=== PATIENT | male | born 1945 | race Caucasian/White ===

== ENCOUNTER 2018-02-18 17:46 | Inpatient (IN) | payer MEDICARE ==
[~2018-02-18] VITALS: Ht 180.3 cm; Wt 104.5 kg
[2018-02-18 17:47] VITALS: BP 119/55; PULSE 67; RESP 20; TEMP 97.4; O2SAT 97
[2018-02-18] MEDS ORDERED: DENO120P SQ (18:09)
[2018-02-18] MEDS ORDERED: TAMS0.4C4 PO (18:09)
[2018-02-18] MEDS ORDERED: ENZA40CA PO (18:09)
[2018-02-18] MEDS ORDERED: LEUP1INJ8 SQ (18:09)
[2018-02-18] MEDS ORDERED: MELA5 PO (18:09)
[2018-02-18] MEDS ORDERED: CALC1TAB87 PO (18:09)
[2018-02-18] MEDS ORDERED: METO1TAB42 PO (18:09)
[2018-02-18] MEDS ORDERED: WARF-18 PO (18:09)
[2018-02-18] MEDS ORDERED: ATOR80TA45 PO (18:09)
[2018-02-18] MEDS ORDERED: METF1000 PO (18:09)
[2018-02-18] MEDS ORDERED: [UNRECOGNIZED DRUG - CODE] (18:09)
[2018-02-18] MEDS ORDERED: OMEGCAP29 PO (18:09)
[2018-02-18] MEDS ORDERED: PARO40TA2 PO (18:09)
[2018-02-18] MEDS ORDERED: LISI-515 PO (18:09)
[2018-02-18 18:16] VITALS: BP 153/71; PULSE 61; RESP 18; O2SAT 97
--- NOTE | 2018-02-18 18:21 | PD ---
HPI Chief Complaint: Abdominal Pain Time Seen by Provider: 17:52 Travel History International Travel<30 days: No Contact w/Intl Traveler<30days: No Traveled to known affect area: No History of Present Illness HPI 72-year-old male presents for evaluation of abdominal pain. Symptoms started this morning. He describes it as a sharp pain in his epigastric and right upper quadrant which is constant, worse with movement. He reports associated nausea and "dry heaves." He reports chronic diarrhea. He denies chest pain, shortness of breath, fevers or chills, flank pain, dysuria. He reports that he has had pancreatitis twice in the past but this did not feel quite similar. He reports a history of appendectomy in the past. He has no other complaints at this time. PFS Past Medical History Atrial Fibrillation: Yes Anxiety: Yes Cancer: Yes (PROSTATE) Cardiac Catheterization: Yes (3 STENTS) Coronary Artery Disease: Yes Diabetes: Yes Patient Takes Glucophage: Yes Genitourinary: Yes (RENAL CYST) Hypertension: Yes Kidney Stones: Yes Past Surgical History Neurologic Surgery: Yes (BACK, NECK) Social History Alcohol Use: No Tobacco Use: No Substance Use: Yes (THC) Allergies-Medications (Allergen,Severity, Reaction): Coded Allergies: No Known Allergies (Unverified , 02/18/18) Reported Meds & Prescriptions Reported Meds & Active Scripts Active Reported Xofigo ([place]-223 Dichloride) 1,100 Kbq/Ml (30 Microcurie/Ml) Vial Xtandi (Enzalutamide) 40 Mg Cap 160 Mg PO DAILY Eligard Inj Kit (Leuprolide Acetate) 7.5 Mg Kit Unknown Dose SQ Q30D Xgeva Inj (Denosumab) 120 Mg/1.7 Ml (70 Mg/Ml) Inj 120 Mg SQ Q28D Melatonin 5 Mg Tab 5 Mg PO HS Warfarin 2.5 Mg Tab 2.5 Mg PO DAILY Calcium 600 with Vitamin D (Calcium Carbonate-Cholecalciferol) 600-400 mg-Unit Tab 1 Tab PO DAILY [facility] ([place] 3 Fatty Azorv-Nbrpaz-Frwtootzic) 250-2.5-0.5 Mg Cap 1 Cap PO DAILY Tamsulosin (Tamsulosin HCl) 0.4 Mg Cap 0.4 Mg PO HS Paroxetine (Paroxetine HCl) 40 Mg Tab 40 Mg PO DAILY Metoprolol Succinate ER 24 HR (Metoprolol Succinate) 25 Mg Tab 75 Mg PO DAILY Atorvastatin (Atorvastatin Calcium) 80 Mg Tab 80 Mg PO HS Metformin (Metformin HCl) 1,000 Mg Tab 1,000 Mg PO BIDPC Lisinopril 20 Mg Tab 20 Mg PO DAILY Review of Systems Except as stated in HPI: all other systems reviewed are Neg Physical Exam Narrative GENERAL: Well-developed well-nourished male in no acute distress SKIN: Warm and dry. HEAD: Atraumatic. Normocephalic. EYES: Pupils equal and round. No scleral icterus. No injection or drainage. ENT: No nasal bleeding or discharge. Mucous membranes pink and moist. NECK: Trachea midline. No JVD. CARDIOVASCULAR: Regular rate and rhythm. No murmur appreciated. RESPIRATORY: No accessory muscle use. Clear to auscultation. Breath sounds equal bilaterally. GASTROINTESTINAL: Abdomen soft, tender to palpation in the epigastrium and right upper quadrant without guarding MUSCULOSKELETAL: No obvious deformities. No clubbing. No cyanosis. No edema. NEUROLOGICAL: Awake and alert. No obvious cranial nerve deficits. Motor grossly within normal limits. Normal speech. PSYCHIATRIC: Appropriate mood and affect; insight and judgment normal. Data Data Last Documented VS Vital Signs Date Time Temp Pulse Resp B/P (MAP) Pulse Ox O2 Delivery O2 Flow Rate FiO2 02/18/18 18:16 61 18 153/71 (98) 97 Room Air 02/18/18 17:47 97.4 Orders Orders Complete Blood Count With Diff (02/18/18 18:17) Comprehensive Metabolic Panel (02/18/18 18:17) Lipase (02/18/18 18:17) Prothrombin Time / Inr (Pt) (02/18/18 18:17) Act Partial Throm Time (Ptt) (02/18/18 18:17) Urinalysis - C+S If Indicated (02/18/18 18:17) Ct Abd/Pel W Iv Contrast(Rout) (02/18/18 18:17) Us Abdomen Gallbladder (02/18/18 ) Iv Access Insert/Monitor (02/18/18 18:17) Ecg Monitoring (02/18/18 18:17) Oximetry (02/18/18 18:17) Morphine Inj (Morphine Inj) (02/18/18 18:30) Ondansetron Inj (Zofran Inj) (02/18/18 18:30) Sodium Chloride 0.9% Flush (Ns Flush) (02/18/18 18:30) Electrocardiogram (02/18/18 18:17) Ckmb (Isoenzyme) Profile (02/18/18 18:17) Troponin I (02/18/18 18:17) Chest, Single Ap (02/18/18 18:17) CKMB (02/18/18 18:20) CKMB% (02/18/18 18:20) Iohexol 350 Inj (Omnipaque 350 Inj) (02/18/18 19:45) Sodium Chlor 0.9% 1000 Ml Inj (Ns 1000 M (02/18/18 20:14) Hydromorphone Pf Inj (Dilaudid Pf Inj) (02/18/18 21:45) Admit Order (Ed Use Only) (02/18/18 21:44) Labs Laboratory Tests Test 02/18/18 18:20 White Blood Count 9.7 TH/MM3 Red Blood Count 3.60 MIL/MM3 Hemoglobin 11.9 GM/DL Hematocrit 34.1 % Mean Corpuscular Volume 94.8 FL Mean Corpuscular Hemoglobin 33.0 PG Mean Corpuscular Hemoglobin Concent 34.8 % Red Cell Distribution Width 14.2 % Platelet Count 242 TH/MM3 Mean Platelet Volume 7.8 FL Neutrophils (%) (Auto) 83.8 % Lymphocytes (%) (Auto) 8.6 % Monocytes (%) (Auto) 5.7 % Eosinophils (%) (Auto) 1.7 % Basophils (%) (Auto) 0.2 % Neutrophils # (Auto) 8.2 TH/MM3 Lymphocytes # (Auto) 0.8 TH/MM3 Monocytes # (Auto) 0.6 TH/MM3 Eosinophils # (Auto) 0.2 TH/MM3 Basophils # (Auto) 0.0 TH/MM3 CBC Comment DIFF FINAL Differential Comment Prothrombin Time 53.4 SEC Prothromb Time International Ratio 5.3 RATIO Activated Partial Thromboplast Time 51.4 SEC Blood Urea Nitrogen 34 MG/DL Creatinine 1.41 MG/DL Random Glucose 99 MG/DL Total Protein 7.3 GM/DL Albumin 3.6 GM/DL Calcium Level 9.1 MG/DL Alkaline Phosphatase 45 U/L Aspartate Amino Transf (AST/SGOT) 23 U/L Alanine Aminotransferase (ALT/SGPT) 26 U/L Total Bilirubin 0.3 MG/DL Sodium Level 138 MEQ/L Potassium Level 4.7 MEQ/L Chloride Level 107 MEQ/L Carbon Dioxide Level 18.9 MEQ/L Anion Gap 12 MEQ/L Estimat Glomerular Filtration Rate 50 ML/MIN Total Creatine Kinase 144 U/L Creatine Kinase MB 3.4 NG/ML Troponin I LESS THAN 0.02 NG/ML Lipase 40399 U/L MDM Medical Decision Making Medical Screen Exam Complete: Yes Emergency Medical Condition: Yes Medical Record Reviewed: Yes Differential Diagnosis Pancreatitis, colitis, bowel obstruction, aortic dissection, cholecystitis, biliary colic, acute coronary syndrome, peptic ulcer disease Narrative Course The patient was placed on ECG monitoring pulse oximetry. A 12-lead EKG was obtained revealing sinus rhythm with left atrial enlargement. Lab work, chest x -ray, right upper quadrant ultrasound, CT abdomen and pelvis have been ordered. CT abdomen and pelvis CONCLUSION: 1. Acute pancreatitis with fluid extending into the anterior pararenal space. Probable 1.9 cm pseudocyst in the body of the pancreas. 2. Widely metastatic prostatic bony disease. 3. Bilateral renal cysts and nonobstructing 3 mm calculus lower pole left kidney. The patient reports that he is aware of the metastatic nature of his prostate disease. He follows with a urologist in [place]. His lipase today is 35,213. At this point in time the plan is to admit the patient for pancreatitis. Diagnosis Primary Impression: Acute pancreatitis Additional Impression: Pseudocyst of pancreas Admitting Information Admitting Physician Requests: Admit Kishore Samayoa Feb 18, 2018 18:21
[2018-02-18] MEDS ORDERED: SODIUM CHLORIDE 0.9% FLUSH 10 ML FLUSH IV FLUSH PRN ×2 (18:30→22:00)
[2018-02-18] MEDS ORDERED: MORPHINE SULFATE 4 MG/ML INJ IV PUSH ONE (18:30)
[2018-02-18] MEDS ORDERED: ONDANSETRON HCL 4 MG/2 ML VIAL IVP ONE (18:30)
[2018-02-18 18:33] LABS: AUTOMATED NEUTROPHIL # 8.2 TH/MM3 (1.8-7.7); BASOPHIL % 0.2 % (0.0-2.0); EOSINOPHIL # 0.2 TH/MM3 (0-0.4); EOSINOPHIL % 1.7 % (0.0-4.0); HEMATOCRIT 34.1 % (39.0-51.0); HEMOGLOBIN 11.9 GM/DL (13.0-17.0); LYMPH % 8.6 % (9.0-44.0); LYMPHOCYTE # 0.8 TH/MM3 (1.0-4.8); MEAN CELL VOLUME 94.8 FL (80.0-100.0); MEAN CORPUSCULAR HGB CONC 34.8 % (32.0-36.0); MEAN PLATELET VOLUME 7.8 FL (7.0-11.0); MONO % 5.7 % (0.0-8.0); MONOCYTE # 0.6 TH/MM3 (0-0.9); NEUT % 83.8 % (16.0-70.0); PLATELET COUNT 242 TH/MM3 (150-450); RED CELL DISTRIBUTION WIDTH 14.2 % (11.6-17.2); WHITE BLOOD COUNT 9.7 TH/MM3 (4.0-11.0)
[2018-02-18 18:48] LABS: INTERNATIONAL NORMALIZED RATIO 5.3 RATIO; PROTHROMBIN TIME - PATIENT 53.4 SEC (9.8-11.6)
[2018-02-18 19:00] LABS: ALBUMIN 3.6 GM/DL (3.4-5.0); AST (GOT) 23 U/L (15-37); BICARBONATE 18.9 MEQ/L (21.0-32.0); BLOOD UREA NITROGEN 34 MG/DL (7-18); CALCIUM 9.1 MG/DL (8.5-10.1); CHLORIDE 107 MEQ/L (98-107); CREATININE 1.41 MG/DL (0.60-1.30); GLOMERULAR FILTRATION RATE 50 ML/MIN (>89); GLUCOSE,RANDOM 99 MG/DL (74-106); SODIUM (NA) 138 MEQ/L (136-145)
[2018-02-18 19:01] LABS: ALT (GPT) 26 U/L (12-78)
--- NOTE | 2018-02-18 19:04 | RADRPT ---
EXAM DATE/TIME: 02/18/2018 18:35 [facility] COMPARISON: No previous studies available for comparison. INDICATIONS : Lower chest pain and shortness of breath. MEDICAL HISTORY : Chronic obstructive pulmonary disease. Hypertension Diabetes mellitus type II. SURGICAL HISTORY : Two cardiac stents. ENCOUNTER: Initial ACUITY: 4 - 6 days PAIN SCORE: 6/10 LOCATION: Bilateral chest FINDINGS: A single view of the chest demonstrates the lungs to be symmetrically aerated without evidence of mas s, infiltrate or effusion. Focal eventration of the medial aspect of the right hemidiaphragm. The ca rdiomediastinal contours are unremarkable. Osseous structures are intact with some degenerative spur ring of the dorsal spine. CONCLUSION: No acute cardiopulmonary process. Chemo Burris MD on February 18, 2018 at 18:58 Board Certified Radiologist. This report was verified electronically.
[2018-02-18 19:06] LABS: ALKALINE PHOSPHATASE 45 U/L (45-117); TOTAL BILIRUBIN ADULT 0.3 MG/DL (0.2-1.0); TOTAL PROTEIN 7.3 GM/DL (6.4-8.2); TROPONIN I LESS THAN 0.02 NG/ML (0.02-0.05)
--- NOTE | 2018-02-18 19:15 | RADRPT ---
EXAM DATE/TIME: 02/18/2018 18:39 [facility] COMPARISON: No previous studies available for comparison. INDICATIONS : Abdominal pain with nausea. MEDICAL HISTORY : Pancreatitis. Carcinoma, prostate. Hypertension. Diabetes. CAD. Renal Cyst. Kidney Stones. SURGICAL HISTORY : Appendectomy. ENCOUNTER: Initial ACUITY: 1 day PAIN SCORE: 5/10 LOCATION: Right upper quadrant MEASUREMENTS: LIVER: 15.2 cm length COMMON DUCT: 6 mm RIGHT KIDNEY: 9.7 x 5.0 x 5.4 cm FINDINGS: LIVER: Slightly increased echotexture without focal lesion or ductal dilatation. COMMON DUCT: No intraluminal mass or stone visualized. GALLBLADDER: Contains no stones, demonstrates no wall thickening or pericholecystic fluid. PANCREAS: The visualized portions are within normal limits. RIGHT KIDNEY: No evidence of hydronephrosis, stone, or mass. 1.8 cm cyst upper pole CONCLUSION: 1. No acute findings. Mild fatty liver. Small right renal cyst. No gallstones or biliary ductal dilat ation. Mo Romero MD on February 18, 2018 at 19:12 Board Certified Radiologist. This report was verified electronically.
[2018-02-18] MEDS ORDERED: IOHEXOL 350 MG/ML 10 ML VIAL (for RAD DIAG) IVCONTRAST ONE (19:45)
--- NOTE | 2018-02-18 20:11 | RADRPT ---
EXAM DATE/TIME: 02/18/2018 19:38 [facility] COMPARISON: No previous studies available for comparison. INDICATIONS : Diffuse abdomen pain and nausea today. IV CONTRAST: 97 cc Omnipaque 350 (iohexol) IV ORAL CONTRAST: No oral contrast ingested. RADIATION DOSE: 14.48 CTDIvol (mGy) MEDICAL HISTORY : Renal calculi. Carcinoma, prostate. diabetes SURGICAL HISTORY : None. ENCOUNTER: Initial ACUITY: 1 day PAIN SCALE: 7/10 LOCATION: Bilateral abdomen TECHNIQUE: Volumetric scanning of the abdomen and pelvis was performed. Using automated exposure control and ad justment of the mA and/or kV according to patient size, radiation dose was kept as low as reasonably achievable to obtain optimal diagnostic quality images. DICOM format image data is available electro nically for review and comparison. FINDINGS: There are diffuse osteoblastic metastases involving the axial axial skeleton and ribs most characteri stic of prostate metastatic disease. Lung bases are clear. No pleural or pericardial effusion. Moderate coronary calcifications. Findings the liver, spleen, adrenals. Bilateral renal cysts with nonobstructing 3 mm calculus lower p ole left kidney. There are extensive inflammatory and edematous changes around the pancreas most characteristic of acu te pancreatitis. 1.9 cm cyst in the body of the pancreas most characteristic of a pseudocyst. There is no free fluid. No bowel obstruction. No adenopathy. Radiation seed implants in the prostatic bed. CONCLUSION: 1. Acute pancreatitis with fluid extending into the anterior pararenal space. Probable 1.9 cm pseudoc yst in the body of the pancreas. 2. Widely metastatic prostatic bony disease. 3. Bilateral renal cysts and nonobstructing 3 mm calculus lower pole left kidney. Mo Romero MD on February 18, 2018 at 20:03 Board Certified Radiologist. This report was verified electronically.
[2018-02-18] MEDS ORDERED: SODIUM CHLOR 0.9% 1000 ML INJ 1,000 ML IV SCH (20:14)
[2018-02-18] MEDS ORDERED: HYDROmorphone HCL PF 1 MG/ML VIAL IV PUSH ONE (21:45)
--- NOTE | 2018-02-18 21:57 | HHI.HP ---
HPI Service [facility] Primary Care Physician No Primary Care Physician Admission Diagnosis Acute pancreatitis, pseudocyst Diagnoses: (1) Acute pancreatitis Diagnosis: Principal (2) Supratherapeutic INR Diagnosis: Principal (3) Prostate CA Diagnosis: Principal (4) Renal insufficiency Diagnosis: Principal Travel History International Travel<30 Days: No Contact w/Intl Traveler <30 Da: No Traveled to Known Affected Are: No History of Present Illness This is a 72-year-old male with a PMH of Metastatic Prostate CA, A-fib on Coumadin, HTN, CAD and DM who presented to ER with complaints of abdominal pain starting earlier today. States he's had ongoing diarrhea for approx 2mo, follows w/ GI doc in [place], however has not seen him since symptoms started. Today, had episode of severe RUQ/epigastric pain, sharp, 10/10, radiation to back, worse w/ movement. Symptoms persisted after several hours at which time he decided to come to the ER. No fever, chills, nausea or vomiting. On arrival , BP 119/55, HR 67, O2 sat 97% on RA, Afebrile. CBC essentially unremarkable. Creatinine 1.41, no previous labs for comparison. Troponin negative. Lipase 35 ,213. INR 5.3. CT Abdomen/Pelvis with acute pancreatitis with fluid extending to anterior pararenal space, probable 1.9 cm pseudocyst in body of the pancreas , widely metastatic prostatic bony disease. CXR with no acute findings. Gallbladder US no acute findings, mild fatty liver, no gallstones or biliary ductal dilatation. Pt reports h/o Pancreatitis approx 5-6 yrs ago, states Lipase was around 2000 at that time, no recurrence since then. Review of Systems Except as stated in HPI: all other systems reviewed are Neg ROS: 14 point review of systems otherwise negative. Past Family Social History Past Medical History PMH: Metastatic Prostate CA, A-fib on Coumadin, HTN, CAD and DM Past Surgical History PAST SURGICAL HISTORY: Neck/Back Surgery Allergies: Coded Allergies: No Known Allergies (Unverified , 02/18/18) Family History PAST FAMILY HISTORY: Reviewed., Positive for DM Social History PAST SOCIAL HISTORY: Negative for alcohol or tobacco. +THC Physical Exam Vital Signs Vital Signs Date Time Temp Pulse Resp B/P (MAP) Pulse Ox O2 Delivery O2 Flow Rate FiO2 02/18/18 18:16 61 18 153/71 (98) 97 Room Air 02/18/18 17:47 97.4 67 20 119/55 (76) 97 Physical Exam PE: GENERAL: Pleasant middle aged white male in no acute distress. HEENT: PERRLA, EOMI. No scleral icterus or conjunctival pallor. No lid lag or facial droop. CARDIOVASCULAR: Regular rate and rhythm. No obvious murmurs to auscultation. No chest tenderness to palpation. RESPIRATORY: No obvious rhonchi or wheezing. Clear to auscultation. Breath sounds equal bilaterally. GASTROINTESTINAL: Abdomen soft, epigastric tenderness to palpation, nondistended. BS normal. MUSCULOSKELETAL: Extremities without clubbing, cyanosis, or edema. No obvious deformities. NEUROLOGICAL: Awake, alert and oriented x4. No focal neurologic deficits. Moving both upper and lower extremities spontaneously. Laboratory Laboratory Tests Test 02/18/18 18:20 White Blood Count 9.7 Red Blood Count 3.60 Hemoglobin 11.9 Hematocrit 34.1 Mean Corpuscular Volume 94.8 Mean Corpuscular Hemoglobin 33.0 Mean Corpuscular Hemoglobin Concent 34.8 Red Cell Distribution Width 14.2 Platelet Count 242 Mean Platelet Volume 7.8 Neutrophils (%) (Auto) 83.8 Lymphocytes (%) (Auto) 8.6 Monocytes (%) (Auto) 5.7 Eosinophils (%) (Auto) 1.7 Basophils (%) (Auto) 0.2 Neutrophils # (Auto) 8.2 Lymphocytes # (Auto) 0.8 Monocytes # (Auto) 0.6 Eosinophils # (Auto) 0.2 Basophils # (Auto) 0.0 CBC Comment DIFF FINAL Differential Comment Prothrombin Time 53.4 Prothromb Time International Ratio 5.3 Activated Partial Thromboplast Time 51.4 Blood Urea Nitrogen 34 Creatinine 1.41 Random Glucose 99 Total Protein 7.3 Albumin 3.6 Calcium Level 9.1 Alkaline Phosphatase 45 Aspartate Amino Transf (AST/SGOT) 23 Alanine Aminotransferase (ALT/SGPT) 26 Total Bilirubin 0.3 Sodium Level 138 Potassium Level 4.7 Chloride Level 107 Carbon Dioxide Level 18.9 Anion Gap 12 Estimat Glomerular Filtration Rate 50 Total Creatine Kinase 144 Creatine Kinase MB 3.4 Troponin I LESS THAN 0.02 Lipase 61734 Result Diagram: 02/18/18181902/18/181819 Caprini VTE Risk Assessment Caprini VTE Risk Assessment: Mod/High Risk (score >= 2) VTE Pharm Contraindication: Coagulopathy,INR elevated Caprini Risk Assessment Model Point Value = 1 Point Value = 2 Point Value = 3 Point Value = 5 Age 41-60 Minor surgery BMI > 25 kg/m2 Swollen legs Varicose veins or History of unexplained or recurrent spontaneous Oral contraceptives or hormone replacement Sepsis (< 1 month) Serious lung disease, including pneumonia (< 1 month) Abnormal pulmonary function Acute myocardial infarction Congestive heart failure (< 1 month) History of inflammatory bowel disease Medical patient at bed rest Age 61-74 Arthroscopic surgery Major open surgery (> 45 min) Laparoscopic surgery (> 45 min) Malignancy Confined to bed (> 72 hours) Immobilizing plaster cast Central venous access Age >= 75 History of VTE Family history of VTE Factor V Leiden Prothrombin [id number] Lupus anticoagulant Anticardiolipin antibodies Elevated serum homocysteine Heparin-induced thrombocytopenia Other congenital or acquired thrombophilia Stroke (< 1 month) Elective arthroplasty Hip, pelvis, or leg fracture Acute spinal cord injury (< 1 month) Prophylaxis Regimen Total Risk Factor Score Risk Level Prophylaxis Regimen 0-1 Low Early ambulation 2 Moderate Order ONE of the following: *Sequential Compression Device (SCD) *Heparin 5000 units SQ BID 3-4 Higher Order ONE of the following medications: *Heparin 5000 units SQ TID *Enoxaparin/Lovenox 40 mg SQ daily (WT < 150 kg, CrCl > 30 mL/min) *Enoxaparin/Lovenox 30 mg SQ daily (WT < 150 kg, CrCl > 10-29 mL/min) *Enoxaparin/Lovenox 30 mg SQ BID (WT < 150 kg, CrCl > 30 mL/min) AND/OR *Sequential Compression Device (SCD) 5 or more Highest Order ONE of the following medications: *Heparin 5000 units SQ TID (Preferred with Epidurals) *Enoxaparin/Lovenox 40 mg SQ daily (WT < 150 kg, CrCl > 30 mL/min) *Enoxaparin/Lovenox 30 mg SQ daily (WT < 150 kg, CrCl > 10-29 mL/min) *Enoxaparin/Lovenox 30 mg SQ BID (WT < 150 kg, CrCl > 30 mL/min) AND *Sequential Compression Device (SCD) Assessment and Plan Problem List: (1) Acute pancreatitis ICD Code: K85.90 - Acute pancreatitis without necrosis or infection, unspecified Status: Acute (2) Supratherapeutic INR ICD Code: R79.1 - Abnormal coagulation profile (3) Renal insufficiency ICD Code: N28.9 - Disorder of kidney and ureter, unspecified (4) Prostate CA ICD Code: C61 - Malignant neoplasm of prostate Assessment and Plan A/P: 1. Pancreatitis: Acute. C/o severe epigastric pain w/ radiation to back, Lipase 35,000. CT Abd/Pelvis w/ acute pancreatitis with fluid extending into anterior pararenal space, probable 1.9 cm pseudocyst in body of the pancreas, images reviewed by me. LFTs normal, Total Bili normal. Gallbladder US w/ no acute findings, images reviewed by me. NPO, IVF, Pepcid IV, Consult GI for further evaluation. 2. Supratherapeutic INR: On Coumadin for h/o A-fib, INR 5.3, states he had it check 1wk ago and was 2.6, no recent changes to dosage. Will hold Coumadin, repeat INR in am. Monitor for bleeding. 3. Renal Insufficiency: Creatinine 1.41, no previous labs for comparison, likely due to dehydration, IVF for hydration, repeat labs in am. 4. Prostate CA: Metastatic, follows w/ Oncology as outpatient, on Xtandi, will resume, pt may take own medications. 5. DVT Prophylaxis: Coumadin on hold for elevated INR. 6. Social work for d/c planning as needed. 7. Case discussed w/ ER physician at length, labs/records/imaging reviewed by me. Physician Certification 2 Midnight Certification Type: Admission for Inpatient Services Order for Inpatient Services The services are ordered in accordance with Medicare regulations or non- Medicare payer requirements, as applicable. In the case of services not specified as inpatient-only, they are appropriately provided as inpatient services in accordance with the 2-midnight benchmark. Estimated LOS (days): 2 days is the estimated time the patient will need to remain in the hospital, assuming treatment plan goals are met and no additional complications. Post-Hospital Plan: Not yet determined Bina Dougherty MD Feb 18, 2018 21:57
[2018-02-18] MEDS ORDERED: MAGNESIUM HYDROXIDE SUSP 30 ML CUP PO PRN (22:00)
[2018-02-18] MEDS ORDERED: ACETAMINOPHEN 325 MG TAB PO PRN (22:00)
[2018-02-18] MEDS ORDERED: MORPHINE SULFATE 2 MG/ML SYRINGE IV PUSH PRN (22:00)
[2018-02-18] MEDS ORDERED: GLUCAGON 1 MG/ML VIAL OTHER PRN (22:00)
[2018-02-18] MEDS ORDERED: SENNOSIDES 8.6 MG TAB PO PRN (22:00)
[2018-02-18] MEDS ORDERED: DEXTROSE 50% IN WATER 50 ML VIAL(D50) IV PUSH PRN (22:00)
[2018-02-18] MEDS ORDERED: LACTULOSE SYRUP 20 GM/30 ML CUP PO PRN (22:00)
[2018-02-18] MEDS ORDERED: ONDANSETRON HCL 4 MG/2 ML VIAL IVP PRN (22:00)
[2018-02-18] MEDS ORDERED: BISACODYL 10 MG SUPP RECTAL PRN (22:00)
[2018-02-18 22:52] VITALS: BP 164/75; PULSE 55; RESP 16; O2SAT 99
[2018-02-18] MEDS: SODIUM CHLOR 0.9% 1000 ML INJ 1,000 ML IV SCH (23:04)
[2018-02-18 23:39] LABS: BILIRUBIN, URINE NEG (NEG); BLOOD, URINE NEG (NEG); GLUCOSE,URINE NEG (NEG); KETONE, URINE NEG (NEG); NITRITE,URINE NEG (NEG); URINE COLOR COLORLESS (YELLW/STRAW); URINE LEUKOCYTE ESTERASE NEG (NEG)
[2018-02-19] VITALS (26 sets, daily range): BP systolic 100–131; BP diastolic 56–74; PULSE 52–86; RESP 16–20; TEMP 97.5–98.3; O2SAT 96–99
[2018-02-19] MEDS: FAMOTIDINE 20 MG/2 ML VIAL IV PUSH SCH ×3 (00:44→21:27)
[2018-02-19] MEDS: HYDROmorphone HCL PF 2 MG/ML VIAL IV PRN (00:48)
[2018-02-19 07:21] LABS: AUTOMATED NEUTROPHIL # 5.5 TH/MM3 (1.8-7.7); BASOPHIL % 0.3 % (0.0-2.0); EOSINOPHIL # 0.1 TH/MM3 (0-0.4); HEMATOCRIT 33.6 % (39.0-51.0); HEMOGLOBIN 11.5 GM/DL (13.0-17.0); LYMPH % 11.9 % (9.0-44.0); LYMPHOCYTE # 0.8 TH/MM3 (1.0-4.8); MEAN CELL VOLUME 94.3 FL (80.0-100.0); MEAN CORPUSCULAR HEMOGLOBIN 32.2 PG (27.0-34.0); MEAN CORPUSCULAR HGB CONC 34.1 % (32.0-36.0); MEAN PLATELET VOLUME 7.7 FL (7.0-11.0); MONO % 5.5 % (0.0-8.0); MONOCYTE # 0.4 TH/MM3 (0-0.9); NEUT % 80.3 % (16.0-70.0); PLATELET COUNT 250 TH/MM3 (150-450); RED BLOOD COUNT 3.56 MIL/MM3 (4.50-5.90); RED CELL DISTRIBUTION WIDTH 14.3 % (11.6-17.2); WHITE BLOOD COUNT 6.8 TH/MM3 (4.0-11.0)
[2018-02-19 07:24] LABS: INTERNATIONAL NORMALIZED RATIO 5.7 RATIO; PROTHROMBIN TIME - PATIENT 56.8 SEC (9.8-11.6)
[2018-02-19] MEDS: METFORMIN HOLD POST IV CONTRAST SCH ×2 (07:42→19:45)
[2018-02-19] MEDS: INSULIN ASPART SUPPLEMENTAL SCALE SQ SCH ×4 (07:43→21:00)
[2018-02-19 07:51] LABS: ALBUMIN 3.5 GM/DL (3.4-5.0); AST (GOT) 18 U/L (15-37); BICARBONATE 20.6 MEQ/L (21.0-32.0); BLOOD UREA NITROGEN 28 MG/DL (7-18); CALCIUM 8.9 MG/DL (8.5-10.1); CHLORIDE 112 MEQ/L (98-107); CREATININE 1.17 MG/DL (0.60-1.30); GLUCOSE,RANDOM 67 MG/DL (74-106); SODIUM (NA) 140 MEQ/L (136-145)
[2018-02-19 07:55] LABS: ALKALINE PHOSPHATASE 46 U/L (45-117); ALT (GPT) 23 U/L (12-78); TOTAL BILIRUBIN ADULT 0.3 MG/DL (0.2-1.0); TOTAL PROTEIN 7.2 GM/DL (6.4-8.2)
[2018-02-19] MEDS: SODIUM CHLOR 0.9% 1000 ML INJ 1,000 ML IV SCH ×2 (08:00→17:11)
[2018-02-19] MEDS: SODIUM CHLORIDE 0.9% FLUSH 10 ML FLUSH IV FLUSH SCH ×2 (09:00→21:22)
[2018-02-19] MEDS ORDERED: ENZALUTAMIDE 160 MG PO SCH (09:00)
[2018-02-19] MEDS: PARoxetine HCL 20 MG TAB PO SCH (09:42)
[2018-02-19] MEDS: METOPROLOL SUCCINATE 25 MG EXTENDED RELEASE TAB PO SCH (09:42)
[2018-02-19] MEDS: DOCUSATE SODIUM 50 MG/SENNA 8.6 MG TAB PO SCH ×2 (09:42→21:00)
--- NOTE | 2018-02-19 10:51 | PD.CONS ---
HPI History of Present Illness This is a 72 year old M with PMH significant for metastatic prostate CA, receiving radiation tx, A-fib on Coumadin, HTN, CAD, and DM who presented to the ER yesterday with complaints of epigastric pain that began yesterday morning. States pain is mostly in epigastric area and radiates through to his back. History of pancreatitis, states twice in the past with last recurrence being five years ago. States he is unsure why he gets pancreatitis, denies ETOH and gallstones. Also complaining of diarrhea for the past few months, states it is explosive so he takes OTC Imodium which helps for awhile and then when it wears off the diarrhea begins again. Denies blood in the stool. Last BM was yesterday morning and states formed but loose. Associated left flank pain with diarrhea. Reports occasional nausea, denies emesis. Denies fever, chills. Last EGD approx 5 years ago and states normal exam. Had a colonoscopy last year and reports findings of polyps. Was taking Aleve frequently but quit a month and a half ago. Denies ETOH and smoking. (Breanne Cervantes) PFSH Past Medical History PMH: Metastatic Prostate CA, A-fib on Coumadin, HTN, CAD and DM Past Surgical History PAST SURGICAL HISTORY: Neck/Back Surgery Colonoscopy EGD (Breanne Cervantes) Coded Allergies: No Known Allergies (Unverified , 02/18/18) Family History PAST FAMILY HISTORY: Reviewed., Positive for DM Social History PAST SOCIAL HISTORY: Negative for alcohol or tobacco. +THC (Breanne Cervantes) Review of Systems Gastrointestinal: COMPLAINS OF: Abdominal pain, Diarrhea, Nausea, DENIES: Black stools, Bloody stools, Constipation, Vomiting, Difficulty Swallowing, Odynophagia, Swelling of Abdomen, Heartburn, Hematemesis (Breanne Cervantes) GI Exam Vitals I&O Vital Signs Date Time Temp Pulse Resp B/P (MAP) Pulse Ox O2 Delivery O2 Flow Rate FiO2 02/19/18 06:00 52 02/19/18 05:00 56 02/19/18 04:18 56 20 100/60 (73) 96 02/19/18 04:00 52 02/19/18 03:00 55 02/19/18 02:00 54 02/19/18 01:00 56 4/22/18 00:10 58 02/19/18 00:01 98.3 70 16 106/66 (79) 97 02/18/18 22:52 55 16 164/75 (104) 99 Room Air 02/18/18 18:16 61 18 153/71 (98) 97 Room Air 02/18/18 17:47 97.4 67 20 119/55 (76) 97 I/O 02/18/18 02/18/18 02/18/18 02/19/18 02/19/18 02/19/18 07:00 15:00 23:00 07:00 15:00 23:00 Intake Total 0 ml Output Total 500 ml Balance -500 ml Intake Oral 0 ml Output Urine Total 500 ml # Bowel Movements 0 Imaging Last Impressions Chest X-Ray 02/18/181816 Signed Impressions: Service Date/Time: Sunday, February 18, 2018 18:35 - CONCLUSION: No acute cardiopulmonary process. Chemo Burris MD Abdomen/Pelvis CT 02/18/181816 Signed Impressions: Service Date/Time: Sunday, February 18, 2018 19:38 - CONCLUSION: 1. Acute pancreatitis with fluid extending into the anterior pararenal space. Probable 1.9 cm pseudocyst in the body of the pancreas. 2. Widely metastatic prostatic bony disease. 3. Bilateral renal cysts and nonobstructing 3 mm calculus lower pole left kidney. Mo Romero MD Gall Bladder Ultrasound 02/18/18 0000 Signed Impressions: Service Date/Time: Sunday, February 18, 2018 18:39 - CONCLUSION: 1. No acute findings. Mild fatty liver. Small right renal cyst. No gallstones or biliary ductal dilatation. Mo Romero MD Laboratory Test 02/18/18 18:20 02/18/18 23:00 02/19/18 06:30 White Blood Count 9.7 TH/MM3 6.8 TH/MM3 Red Blood Count 3.60 MIL/MM3 3.56 MIL/MM3 Hemoglobin 11.9 GM/DL 11.5 GM/DL Hematocrit 34.1 % 33.6 % Mean Corpuscular Volume 94.8 FL 94.3 FL Mean Corpuscular Hemoglobin 33.0 PG 32.2 PG Mean Corpuscular Hemoglobin Concent 34.8 % 34.1 % Red Cell Distribution Width 14.2 % 14.3 % Platelet Count 242 TH/MM3 250 TH/MM3 Mean Platelet Volume 7.8 FL 7.7 FL Neutrophils (%) (Auto) 83.8 % 80.3 % Lymphocytes (%) (Auto) 8.6 % 11.9 % Monocytes (%) (Auto) 5.7 % 5.5 % Eosinophils (%) (Auto) 1.7 % 2.0 % Basophils (%) (Auto) 0.2 % 0.3 % Neutrophils # (Auto) 8.2 TH/MM3 5.5 TH/MM3 Lymphocytes # (Auto) 0.8 TH/MM3 0.8 TH/MM3 Monocytes # (Auto) 0.6 TH/MM3 0.4 TH/MM3 Eosinophils # (Auto) 0.2 TH/MM3 0.1 TH/MM3 Basophils # (Auto) 0.0 TH/MM3 0.0 TH/MM3 CBC Comment DIFF FINAL DIFF FINAL Differential Comment Prothrombin Time 53.4 SEC 56.8 SEC Prothromb Time International Ratio 5.3 RATIO 5.7 RATIO Activated Partial Thromboplast Time 51.4 SEC Blood Urea Nitrogen 34 MG/DL 28 MG/DL Creatinine 1.41 MG/DL 1.17 MG/DL Random Glucose 99 MG/DL 67 MG/DL Total Protein 7.3 GM/DL 7.2 GM/DL Albumin 3.6 GM/DL 3.5 GM/DL Calcium Level 9.1 MG/DL 8.9 MG/DL Alkaline Phosphatase 45 U/L 46 U/L Aspartate Amino Transf (AST/SGOT) 23 U/L 18 U/L Alanine Aminotransferase (ALT/SGPT) 26 U/L 23 U/L Total Bilirubin 0.3 MG/DL 0.3 MG/DL Sodium Level 138 MEQ/L 140 MEQ/L Potassium Level 4.7 MEQ/L 4.6 MEQ/L Chloride Level 107 MEQ/L 112 MEQ/L Carbon Dioxide Level 18.9 MEQ/L 20.6 MEQ/L Anion Gap 12 MEQ/L 7 MEQ/L Estimat Glomerular Filtration Rate 50 ML/MIN Total Creatine Kinase 144 U/L Creatine Kinase MB 3.4 NG/ML Troponin I LESS THAN 0.02 NG/ML Lipase 07642 U/L 3979 U/L Urine Color COLORLESS Urine Turbidity CLEAR Urine pH 5.0 Urine Specific [place] 1.037 Urine Protein NEG mg/dL Urine Glucose (UA) NEG mg/dL Urine Ketones NEG mg/dL Urine Occult Blood NEG Urine Nitrite NEG Urine Bilirubin NEG Urine Urobilinogen LESS THAN 2.0 MG/DL Urine Leukocyte Esterase NEG Urine WBC LESS THAN 1 /hpf Microscopic Urinalysis Comment CULT NOT INDICATED Physical Examination HEENT: Normocephalic; atraumatic CHEST: Even/unlabored CARDIAC: Irregularly irregular ABDOMEN: Soft, nondistended, epigastric TTP, bowel sounds active EXTREMITIES: No clubbing, cyanosis, or edema. SKIN: Normal; no rash; no jaundice. 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 (Breanne Cervantes) Assessment and Plan Plan Assessment: - Acute pancreatitis with CT findings of probably 1.9 cm pseudocyst in body of pancreas Lipase over 35,000 on arrival, currently 3,979 Reports two prior episodes of pancreatitis, last recurrence 5 years ago. Has never been told why he gets pancreatitis. Denies ETOH and history of gallstones. Complaining of epigastric pain radiating through to his back. Also complaining of nausea but that has been intermittent for a couple months CT abdomen and pelvis W IV contrast (02/18) --> Acute pancreatitis with fluid extending into the anterior pararenal space. Probable 1.9 cm pseudocyst in the body of the pancreas. Widely metastatic prostatic bony disease. Bilateral renal cysts and nonobstructing 3 mm calculus lower pole left kidney. US gallbladder (02/18) --> . No acute findings. Mild fatty liver. Small right renal cyst. No gallstones or biliary ductal dilatation. - Diarrhea- states explosive diarrhea, takes Imodium which helps but as soon as it wears of diarrhea begins again. Denies blood in stool, fever, chills, recent travel. ? secondary to radiation tx for prostate cancer. Last colonoscopy a year ago, states polyps Last EGD approx 5 years ago and states normal exam - Supratherapeutic INR- on Coumadin for a-fib. INR currently 5.7 - Reports medical marijuana use Plan: NPO CLARA, IgG4 Lipid panel IVF Pain control Monitor labs (CBC, CMP) Stool studies Further recommendations based on clinical course Pt has been seen and examined by myself and Dr. Cruz and this note is written on his behalf (Breanne Cervantes) Physician Comments Patient seen and examined Agree with above Continue with current supportive care Monitor labs Etiologies for recurring pancreatitis could include drug-induced versus autoimmune versus familial versus acute on chronic versus other I would recommend endoscopic ultrasound to further evaluate the pseudocyst and for possibility of metastases to the pancreas this is to be scheduled for Tuesday (Fox Cruz MD) Breanne Cervantes Feb 19, 2018 10:51 Fox Cruz MD Feb 20, 2018 00:29
[2018-02-19] MEDS: XTANDI 40 MG PO SCH (13:47)
[2018-02-19 14:04] LABS: CHOLESTEROL/ HDL RATIO 3.69 RATIO
[2018-02-19] MEDS ORDERED: PHYTONADIONE INJ 1 MG/0.5 ML AMP SQ ONE (18:00)
--- NOTE | 2018-02-19 18:02 | HHI.PR ---
Subjective Remarks Patient states this is not the worst pancreatitis that he has had. He has moderate pain and moderate nausea and vomiting. His lipase numbers however are impressive Objective Vitals Vital Signs Date Time Temp Pulse Resp B/P (MAP) Pulse Ox O2 Delivery O2 Flow Rate FiO2 02/19/18 17:15 58 02/19/18 16:40 60 02/19/18 15:03 57 02/19/18 15:03 98.2 56 18 123/69 (87) 98 02/19/18 14:58 18 02/19/18 14:25 86 02/19/18 13:15 60 02/19/18 12:00 57 02/19/18 11:15 55 02/19/18 11:15 98.0 62 18 122/63 (82) 99 02/19/18 10:40 55 02/19/18 09:00 57 02/19/18 08:15 97.5 71 18 106/72 (83) 98 02/19/18 08:15 52 02/19/18 06:00 52 02/19/18 05:00 56 02/19/18 04:18 56 20 100/60 (73) 96 02/19/18 04:00 52 02/19/18 03:00 55 02/19/18 02:00 54 02/19/18 01:00 56 02/19/18 00:10 58 02/19/18 00:01 98.3 70 16 106/66 (79) 97 02/18/18 22:52 55 16 164/75 (104) 99 Room Air 02/18/18 18:16 61 18 153/71 (98) 97 Room Air I/O 02/18/18 02/18/18 02/18/18 02/19/18 02/19/18 02/19/18 07:00 15:00 23:00 07:00 15:00 23:00 Intake Total 0 ml 100 ml Output Total 500 ml 1050 ml Balance -500 ml -950 ml Intake Oral 0 ml 100 ml Output Urine Total 500 ml 1050 ml # Bowel Movements 0 0 Result Diagram: 02/19/1862902/19/18629 Objective Remarks GENERAL: Obese, pleasant affect, no distress SKIN: Warm and dry. HEAD: Normocephalic. EYES: No scleral icterus. No injection or drainage. NECK: Supple, trachea midline. No JVD or lymphadenopathy. CARDIOVASCULAR: Regular rate and rhythm without murmurs, gallops, or rubs. RESPIRATORY: Breath sounds equal bilaterally. No accessory muscle use. GASTROINTESTINAL: Abdomen obese mild diffuse tenderness, nondistended, nonacute EXTREMITIES: No cyanosis, or edema. NEUROLOGICAL: Awake, alert, and oriented x 3. Non-focal. A/P Problem List: (1) Acute pancreatitis ICD Code: K85.90 - Acute pancreatitis without necrosis or infection, unspecified Status: Acute (2) Supratherapeutic INR ICD Code: R79.1 - Abnormal coagulation profile (3) Renal insufficiency ICD Code: N28.9 - Disorder of kidney and ureter, unspecified (4) Prostate CA ICD Code: C61 - Malignant neoplasm of prostate Assessment and Plan Acute pancreatitis Epigastric pain with radiation to his back Lipase levels at 35,000 on admission 1.9 cm pseudocyst in body of pancreas on CT Last occurrence was 5 years ago, only 2 occurrences in his life He denies any alcohol use His triglyceride level is only mildly elevated Consider medication side effect, specifically Xtandi (hold) Appreciate gastroenterology consult Supratherapeutic INR INR 5.2 to 5.7 Vitamin K, 1mg SQ given Follow INR level daily Pancreatitis is a possible side effect of coumadin, reduce toxicity, follow lipase Diarrhea 28% of patients on Xtandi have diarrhea as a side effect Treat symptomatically Prostate cancer Metastatic, following up as outpatient with oncology Patient takes Xtandi as treatment Latest PSA was within normal limits DVT Prophylaxis Coumadin held for supertheraputic, INR = 5.7 Jeremie Styles MD Feb 19, 2018 18:02
[2018-02-19] MEDS: DEXTROSE 5%-LACTATED RING INJ 1,000 ML IV SCH (18:33)
[2018-02-19] MEDS: ATORVASTATIN 80 MG TAB PO SCH (21:22)
[2018-02-19] MEDS: TAMSULOSIN HCL 0.4 MG CAP PO SCH (21:22)
[2018-02-20] VITALS (23 sets, daily range): BP systolic 98–153; BP diastolic 52–83; PULSE 50–89; RESP 18–22; TEMP 97.3–98.1; O2SAT 94–100
--- NOTE | 2018-02-20 00:33 | EKG ---
Date Performed: 02/18/2018 Time Performed: 18:07:20 PTAGE: 72 years EKG: SINUS BRADYCARDIA MARKED LEFT AXIS DEVIATION PATTERN CONSISTENT WITH PULMONARY DISEASE ABNO RMAL ECG INTERPRETATION BASED ON A DEFAULT AGE OF 41 YEARS NO PREVIOUS TRACING DOCTOR: Tello Ha Interpretating Date/Time 02/20/2018 00:32:24
[2018-02-20 06:24] LABS: HEMATOCRIT 28.7 % (39.0-51.0); HEMOGLOBIN 9.9 GM/DL (13.0-17.0); MEAN CELL VOLUME 94.9 FL (80.0-100.0); MEAN CORPUSCULAR HEMOGLOBIN 32.6 PG (27.0-34.0); MEAN CORPUSCULAR HGB CONC 34.3 % (32.0-36.0); MEAN PLATELET VOLUME 7.9 FL (7.0-11.0); PLATELET COUNT 197 TH/MM3 (150-450); RED BLOOD COUNT 3.03 MIL/MM3 (4.50-5.90); RED CELL DISTRIBUTION WIDTH 14.3 % (11.6-17.2); WHITE BLOOD COUNT 5.8 TH/MM3 (4.0-11.0)
[2018-02-20 06:45] LABS: PROTHROMBIN TIME - PATIENT 64.9 SEC (9.8-11.6)
[2018-02-20 06:50] LABS: BICARBONATE 21.2 MEQ/L (21.0-32.0); CALCIUM 8.4 MG/DL (8.5-10.1); CREATININE 1.22 MG/DL (0.60-1.30)
[2018-02-20 06:52] LABS: INTERNATIONAL NORMALIZED RATIO 6.5 RATIO
[2018-02-20] MEDS: INSULIN ASPART SUPPLEMENTAL SCALE SQ SCH ×4 (08:00→21:00)
[2018-02-20] MEDS: METOPROLOL SUCCINATE 25 MG EXTENDED RELEASE TAB PO SCH (09:00)
[2018-02-20] MEDS: SODIUM CHLORIDE 0.9% FLUSH 10 ML FLUSH IV FLUSH SCH ×2 (09:00→21:42)
[2018-02-20] MEDS: PARoxetine HCL 20 MG TAB PO SCH (09:19)
[2018-02-20] MEDS: DOCUSATE SODIUM 50 MG/SENNA 8.6 MG TAB PO SCH ×2 (09:21→21:42)
[2018-02-20] MEDS: FAMOTIDINE 20 MG/2 ML VIAL IV PUSH SCH (12:01)
--- NOTE | 2018-02-20 12:55 | HHI.GIFU ---
Subjective Remarks pt resting in bed. Overall he is feeling better. RUQ pain still somewhat severe but epigastric pain is abating. (Eun Wheeler) Objective Vitals I&O Vital Signs Date Time Temp Pulse Resp B/P (MAP) Pulse Ox O2 Delivery O2 Flow Rate FiO2 02/20/18 11:00 97.8 57 22 124/69 (87) 100 02/20/18 07:00 98.0 52 22 106/52 (70) 99 02/20/18 07:00 53 02/20/18 06:00 54 02/20/18 05:00 54 02/20/18 04:32 60 18 98/54 (69) 97 02/20/18 04:00 54 02/20/18 03:00 56 02/20/18 02:00 56 02/20/18 01:00 58 02/20/18 00:00 60 02/19/18 23:00 66 18 102/56 (71) 98 02/19/18 23:00 68 02/19/18 22:00 74 02/19/18 21:00 62 02/19/18 20:00 70 02/19/18 19:40 98.3 60 16 131/74 (93) 99 02/19/18 19:00 62 02/19/18 18:03 62 02/19/18 17:15 58 02/19/18 16:40 60 02/19/18 15:03 57 02/19/18 15:03 98.2 56 18 123/69 (87) 98 02/19/18 14:58 18 02/19/18 14:25 86 02/19/18 13:15 60 I/O 02/19/18 02/19/18 02/19/18 02/20/18 02/20/18 02/20/18 07:00 15:00 23:00 07:00 15:00 23:00 Intake Total 0 ml 1100 ml 50 ml Output Total 500 ml 1050 ml 550 ml Balance -500 ml 50 ml -500 ml Intake Oral 0 ml 100 ml 50 ml IV Total 1000 ml Output Urine Total 500 ml 1050 ml 550 ml # Bowel Movements 0 0 0 Laboratory Laboratory Tests Test 02/19/18 13:00 02/20/18 04:54 Triglycerides Level 271 Cholesterol Level 159 LDL Cholesterol 62 HDL Cholesterol 43.0 Cholesterol/HDL Ratio 3.69 White Blood Count 5.8 Red Blood Count 3.03 Hemoglobin 9.9 Hematocrit 28.7 Mean Corpuscular Volume 94.9 Mean Corpuscular Hemoglobin 32.6 Mean Corpuscular Hemoglobin Concent 34.3 Red Cell Distribution Width 14.3 Platelet Count 197 Mean Platelet Volume 7.9 Prothrombin Time 64.9 Prothromb Time International Ratio 6.5 Blood Urea Nitrogen 20 Creatinine 1.22 Random Glucose 102 Calcium Level 8.4 Sodium Level 141 Potassium Level 4.3 Chloride Level 110 Carbon Dioxide Level 21.2 Anion Gap 10 Estimat Glomerular Filtration Rate 59 Lipase 792 Imaging Last Impressions Chest X-Ray 02/18/181816 Signed Impressions: Service Date/Time: Sunday, February 18, 2018 18:35 - CONCLUSION: No acute cardiopulmonary process. Chemo Burris MD Abdomen/Pelvis CT 02/18/181816 Signed Impressions: Service Date/Time: Sunday, February 18, 2018 19:38 - CONCLUSION: 1. Acute pancreatitis with fluid extending into the anterior pararenal space. Probable 1.9 cm pseudocyst in the body of the pancreas. 2. Widely metastatic prostatic bony disease. 3. Bilateral renal cysts and nonobstructing 3 mm calculus lower pole left kidney. Mo Romero MD Gall Bladder Ultrasound 02/18/18 0000 Signed Impressions: Service Date/Time: Sunday, February 18, 2018 18:39 - CONCLUSION: 1. No acute findings. Mild fatty liver. Small right renal cyst. No gallstones or biliary ductal dilatation. Mo Romero MD Physical Exam HEENT: PERRL; normocephalic; atraumatic; no jaundice. CHEST: CTA CARDIAC: RRR ABDOMEN: Soft, obese, RUQ TTP, mild TTP epigatrium; no hepatosplenomegaly; bowel sounds are present in all four quadrants. EXTREMITIES: No clubbing, cyanosis, or edema. SKIN: Normal; no rash; no jaundice. 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 (Eun Wheeler) Assessment and Plan Plan Assessment: - Acute pancreatitis with CT findings of probably 1.9 cm pseudocyst in body of pancreas Lipase over 35,000 on arrival, currently 3,979 Reports two prior episodes of pancreatitis, last recurrence 5 years ago. Has never been told why he gets pancreatitis. Denies ETOH and history of gallstones. Complaining of epigastric pain radiating through to his back. Also complaining of nausea but that has been intermittent for a couple months CT abdomen and pelvis W IV contrast (02/18) --> Acute pancreatitis with fluid extending into the anterior pararenal space. Probable 1.9 cm pseudocyst in the body of the pancreas. Widely metastatic prostatic bony disease. Bilateral renal cysts and nonobstructing 3 mm calculus lower pole left kidney. US gallbladder (02/18) --> . No acute findings. Mild fatty liver. Small right renal cyst. No gallstones or biliary ductal dilatation. - Diarrhea- states explosive diarrhea, takes Imodium which helps but as soon as it wears of diarrhea begins again. Denies blood in stool, fever, chills, recent travel. ? secondary to radiation tx for prostate cancer. Last colonoscopy a year ago, states polyps Last EGD approx 5 years ago and states normal exam - Supratherapeutic INR- on Coumadin for a-fib. INR currently 5.7 - Reports medical marijuana use 02/20/18 doing better, lipase trending down, 792 today. tolerating ice chips CLARA, IGG4 pending. stool cx pending. triglycerides mildly elevated, not sufficiently to be likely cause for his pancreatitis Plan: EUS tuesday obtain consent NPO after midnight tu night clears await CLARA, IgG4 IVF Pain control Monitor labs await Stool studies Pt has been seen and examined by myself and Dr. Cruz and this note is written on his behalf (Eun Wheeler) Physician Comments patient seen and examined agree with above monitor labs continue present supportive care EUS Tuesday (Fox Cruz MD) Eun Wheeler Feb 20, 2018 12:55 Fox Cruz MD Feb 20, 2018 21:14
[2018-02-20] MEDS: HYDROmorphone HCL PF 2 MG/ML VIAL IV PRN (17:06)
[2018-02-20] MEDS: XTANDI 40 MG PO SCH (17:52)
[2018-02-20] MEDS: DEXTROSE 5%-LACTATED RING INJ 1,000 ML IV SCH (18:11)
--- NOTE | 2018-02-20 19:14 | HHI.PR ---
Subjective Remarks still c/o RUQ pain Denies fevers or chills Denies nausea, vomiting or abdominal pain Objective Vitals Vital Signs Date Time Temp Pulse Resp B/P (MAP) Pulse Ox O2 Delivery O2 Flow Rate FiO2 02/20/18 17:53 18 02/20/18 15:00 98.1 56 18 143/76 (98) 94 02/20/18 11:00 97.8 57 22 124/69 (87) 100 02/20/18 07:00 98.0 52 22 106/52 (70) 99 02/20/18 07:00 53 02/20/18 06:00 54 02/20/18 05:00 54 02/20/18 04:32 60 18 98/54 (69) 97 02/20/18 04:00 54 02/20/18 03:00 56 02/20/18 02:00 56 02/20/18 01:00 58 02/20/18 00:00 60 02/19/18 23:00 66 18 102/56 (71) 98 02/19/18 23:00 68 02/19/18 22:00 74 02/19/18 21:00 62 02/19/18 20:00 70 02/19/18 19:40 98.3 60 16 131/74 (93) 99 I/O 02/19/18 02/19/18 02/19/18 02/20/18 02/20/18 02/20/18 07:00 15:00 23:00 07:00 15:00 23:00 Intake Total 0 ml 1100 ml 50 ml 700 ml Output Total 500 ml 1050 ml 550 ml 1030 ml Balance -500 ml 50 ml -500 ml -330 ml Intake Oral 0 ml 100 ml 50 ml 700 ml IV Total 1000 ml Output Urine Total 500 ml 1050 ml 550 ml 1030 ml # Bowel Movements 0 0 0 Result Diagram: 02/20/18 0454 02/20/18 0454 Imaging Last Impressions Head CT 02/20/18 0000 Signed Impressions: Service Date/Time: Wednesday, February 21, 2018 00:23 - CONCLUSION: 1. No acute intracranial abnormalities. Mo Romero MD Chest X-Ray 02/18/181816 Signed Impressions: Service Date/Time: Sunday, February 18, 2018 18:35 - CONCLUSION: No acute cardiopulmonary process. Chemo Burris MD Abdomen/Pelvis CT 02/18/187 Signed Impressions: Service Date/Time: Sunday, February 18, 2018 19:38 - CONCLUSION: 1. Acute pancreatitis with fluid extending into the anterior pararenal space. Probable 1.9 cm pseudocyst in the body of the pancreas. 2. Widely metastatic prostatic bony disease. 3. Bilateral renal cysts and nonobstructing 3 mm calculus lower pole left kidney. Mo Romero MD Gall Bladder Ultrasound 02/18/18 0000 Signed Impressions: Service Date/Time: Sunday, February 18, 2018 18:39 - CONCLUSION: 1. No acute findings. Mild fatty liver. Small right renal cyst. No gallstones or biliary ductal dilatation. Mo Romero MD Objective Remarks AAox3 Clear lungs BL S1S2 RRR, no MRG Epigastric tenderness, abdomen soft with positive bowel sounds A/P Problem List: (1) Acute pancreatitis ICD Code: K85.90 - Acute pancreatitis without necrosis or infection, unspecified Status: Acute (2) Supratherapeutic INR ICD Code: R79.1 - Abnormal coagulation profile Status: Acute (3) Renal insufficiency ICD Code: N28.9 - Disorder of kidney and ureter, unspecified Status: Resolved (4) Prostate CA ICD Code: C61 - Malignant neoplasm of prostate Status: Chronic (5) Diarrhea ICD Code: R19.7 - Diarrhea, unspecified Status: Acute (6) Pseudocyst of pancreas ICD Code: K86.3 - Pseudocyst of pancreas Status: Acute Assessment and Plan Acute pancreatitis Epigastric pain with radiation to his back Lipase levels at 35,000 on admission 1.9 cm pseudocyst in body of pancreas on CT Last occurrence was 5 years ago, only 2 occurrences in his life He denies any alcohol use His triglyceride level is only mildly elevated Consider medication side effect, specifically Xtandi (hold) Appreciate gastroenterology consult 02/20 for EUS in am. Discussed with GI PA. Lipase down to 792. Supratherapeutic INR INR 5.2 to 5.7 Vitamin K, 1mg SQ given Follow INR level daily Pancreatitis is a possible side effect of coumadin, reduce toxicity, follow lipase 02/20 INR continues to trend up however there is no evidence of active bleeding. Diarrhea 28% of patients on Xtandi have diarrhea as a side effect Treat symptomatically 02/20 check stool studies and C diff PCR. However no BM in the last 3 days. Prostate cancer Metastatic, following up as outpatient with oncology Patient takes Xtandi as treatment Latest PSA was within normal limits DVT Prophylaxis Coumadin held for supertheraputic, INR = 6.5 Problem Qualifiers (1) Diarrhea: Qualified Codes: R19.7 - Diarrhea, unspecified Troy Amos MD Feb 20, 2018 19:14
[2018-02-20] MEDS: METFORMIN HOLD POST IV CONTRAST SCH (19:45)
[2018-02-20] MEDS: ATORVASTATIN 80 MG TAB PO SCH (21:42)
[2018-02-20] MEDS: TAMSULOSIN HCL 0.4 MG CAP PO SCH (21:42)
[2018-02-20 22:26] LABS: CREATININE 1.08 MG/DL (0.60-1.30)
[2018-02-20] MEDS ORDERED: LORazepam 2 MG/ML VIAL IV PUSH ONE (23:30)
[2018-02-21] VITALS (8 sets, daily range): BP systolic 112–150; BP diastolic 62–80; PULSE 50–76; RESP 18–20; TEMP 97.9–98.3; O2SAT 97–100
--- NOTE | 2018-02-21 00:45 | RADRPT ---
EXAM DATE/TIME: 02/21/2018 00:23 [facility] COMPARISON: No previous studies available for comparison. INDICATIONS : Altered mental status. RADIATION DOSE: 66.34 CTDIvol (mGy) MEDICAL HISTORY : Cardiovascular disease. Hypertension. Diabetes mellitus type 2.Prostate cancer SURGICAL HISTORY : Coronary artery stent. ENCOUNTER: Initial ACUITY: 1 day PAIN SCALE: Non-responsive LOCATION: cranial TECHNIQUE: Multiple contiguous axial images were obtained of the head. Using automated exposure control and adj ustment of the mA and/or kV according to patient size, radiation dose was kept as low as reasonably a chievable to obtain optimal diagnostic quality images. DICOM format image data is available electro nically for review and comparison. FINDINGS: CEREBRUM: The ventricles are normal for age. No evidence of midline shift, mass lesion, hemorrhage or acute in farction. No extra-axial fluid collections are seen. POSTERIOR FOSSA: The cerebellum and brainstem are intact. The 4th ventricle is midline. The cerebellopontine angle i s unremarkable. EXTRACRANIAL: The visualized portion of the orbits is intact. SKULL: The calvaria is intact. No evidence of skull fracture. Previous left orbital floor repair. CONCLUSION: 1. No acute intracranial abnormalities. Mo Romero MD on February 21, 2018 at 0:42 Board Certified Radiologist. This report was verified electronically.
[2018-02-21 06:29] LABS: INTERNATIONAL NORMALIZED RATIO 4.8 RATIO; PROTHROMBIN TIME - PATIENT 48.1 SEC (9.8-11.6)
[2018-02-21 06:34] LABS: AST (GOT) 19 U/L (15-37); BICARBONATE 21.8 MEQ/L (21.0-32.0); BLOOD UREA NITROGEN 14 MG/DL (7-18); CALCIUM 8.4 MG/DL (8.5-10.1); CHLORIDE 110 MEQ/L (98-107); CREATININE 1.06 MG/DL (0.60-1.30); GLOMERULAR FILTRATION RATE 69 ML/MIN (>89); GLUCOSE,RANDOM 119 MG/DL (74-106); MAGNESIUM 1.6 MG/DL (1.5-2.5); SODIUM (NA) 141 MEQ/L (136-145)
[2018-02-21 06:35] LABS: ALT (GPT) 18 U/L (12-78); PHOSPHORUS 2.9 MG/DL (2.5-4.9)
[2018-02-21 06:39] LABS: ALKALINE PHOSPHATASE 41 U/L (45-117); TOTAL BILIRUBIN ADULT 0.5 MG/DL (0.2-1.0); TOTAL PROTEIN 6.7 GM/DL (6.4-8.2); TROPONIN I LESS THAN 0.02 NG/ML (0.02-0.05)
[2018-02-21 06:41] LABS: AUTOMATED NEUTROPHIL # 4.3 TH/MM3 (1.8-7.7); BASOPHIL % 0.5 % (0.0-2.0); EOSINOPHIL # 0.1 TH/MM3 (0-0.4); EOSINOPHIL % 2.1 % (0.0-4.0); HEMATOCRIT 28.1 % (39.0-51.0); HEMOGLOBIN 9.7 GM/DL (13.0-17.0); LYMPH % 11.6 % (9.0-44.0); LYMPHOCYTE # 0.6 TH/MM3 (1.0-4.8); MEAN CELL VOLUME 94.1 FL (80.0-100.0); MEAN CORPUSCULAR HEMOGLOBIN 32.6 PG (27.0-34.0); MEAN CORPUSCULAR HGB CONC 34.6 % (32.0-36.0); MEAN PLATELET VOLUME 7.6 FL (7.0-11.0); MONO % 6.7 % (0.0-8.0); MONOCYTE # 0.4 TH/MM3 (0-0.9); NEUT % 79.1 % (16.0-70.0); PLATELET COUNT 188 TH/MM3 (150-450); RED BLOOD COUNT 2.99 MIL/MM3 (4.50-5.90); RED CELL DISTRIBUTION WIDTH 14.1 % (11.6-17.2); WHITE BLOOD COUNT 5.4 TH/MM3 (4.0-11.0)
[2018-02-21] MEDS: INSULIN ASPART SUPPLEMENTAL SCALE SQ SCH ×4 (08:00→19:48)
[2018-02-21] MEDS: DOCUSATE SODIUM 50 MG/SENNA 8.6 MG TAB PO SCH ×2 (08:29→19:47)
[2018-02-21] MEDS: PARoxetine HCL 20 MG TAB PO SCH (08:29)
[2018-02-21] MEDS: METOPROLOL SUCCINATE 25 MG EXTENDED RELEASE TAB PO SCH ×2 (08:29→08:32)
[2018-02-21] MEDS: SODIUM CHLORIDE 0.9% FLUSH 10 ML FLUSH IV FLUSH SCH ×2 (08:30→19:47)
--- NOTE | 2018-02-21 11:15 | HHI.GIFU ---
Subjective Remarks Pt resting in bed. reportedly had episode confusion and incontinence last night. alert and oriented on my eval. at bedside. abd pain improving. (Eun Wheeler) Objective Vitals I&O Vital Signs Date Time Temp Pulse Resp B/P (MAP) Pulse Ox O2 Delivery O2 Flow Rate FiO2 02/21/18 07:30 98.3 68 20 148/78 (101) 100 02/21/18 04:00 57 02/21/18 03:30 98.0 58 20 112/65 (81) 98 02/20/18 23:20 97.3 89 22 138/79 (98) 95 02/20/18 23:00 89 02/20/18 20:00 98.1 56 18 153/83 (106) 98 02/20/18 20:00 56 02/20/18 18:00 54 02/20/18 17:53 18 02/20/18 17:00 56 02/20/18 16:00 54 02/20/18 15:00 98.1 56 18 143/76 (98) 94 02/20/18 15:00 53 02/20/18 14:00 50 02/20/18 13:00 50 02/20/18 12:00 56 I/O 02/20/18 02/20/18 02/20/18 02/21/18 02/21/18 02/21/18 06:59 14:59 22:59 06:59 14:59 22:59 Intake Total 50 ml 700 ml 240 ml Output Total 550 ml 1030 ml 450 ml Balance -500 ml -330 ml -210 ml Intake Oral 50 ml 700 ml 240 ml Output Urine Total 550 ml 1030 ml 450 ml # Voids 1 # Bowel Movements 0 0 Laboratory Laboratory Tests Test 02/20/18 20:44 02/21/18 05:52 Creatinine 1.08 1.06 Estimat Glomerular Filtration Rate 67 69 White Blood Count 5.4 Red Blood Count 2.99 Hemoglobin 9.7 Hematocrit 28.1 Mean Corpuscular Volume 94.1 Mean Corpuscular Hemoglobin 32.6 Mean Corpuscular Hemoglobin Concent 34.6 Red Cell Distribution Width 14.1 Platelet Count 188 Mean Platelet Volume 7.6 Neutrophils (%) (Auto) 79.1 Lymphocytes (%) (Auto) 11.6 Monocytes (%) (Auto) 6.7 Eosinophils (%) (Auto) 2.1 Basophils (%) (Auto) 0.5 Neutrophils # (Auto) 4.3 Lymphocytes # (Auto) 0.6 Monocytes # (Auto) 0.4 Eosinophils # (Auto) 0.1 Basophils # (Auto) 0.0 CBC Comment DIFF FINAL Differential Comment Prothrombin Time 48.1 Prothromb Time International Ratio 4.8 Blood Urea Nitrogen 14 Random Glucose 119 Total Protein 6.7 Albumin 3.0 Calcium Level 8.4 Phosphorus Level 2.9 Magnesium Level 1.6 Alkaline Phosphatase 41 Aspartate Amino Transf (AST/SGOT) 19 Alanine Aminotransferase (ALT/SGPT) 18 Total Bilirubin 0.5 Sodium Level 141 Potassium Level 4.3 Chloride Level 110 Carbon Dioxide Level 21.8 Anion Gap 9 Troponin I LESS THAN 0.02 Lipase 1172 Imaging Last Impressions Head CT 02/20/18 0000 Signed Impressions: Service Date/Time: Wednesday, February 21, 2018 00:23 - CONCLUSION: 1. No acute intracranial abnormalities. Mo Romero MD Chest X-Ray 02/18/181816 Signed Impressions: Service Date/Time: Sunday, February 18, 2018 18:35 - CONCLUSION: No acute cardiopulmonary process. Chemo Burris MD Abdomen/Pelvis CT 02/18/181816 Signed Impressions: Service Date/Time: Sunday, February 18, 2018 19:38 - CONCLUSION: 1. Acute pancreatitis with fluid extending into the anterior pararenal space. Probable 1.9 cm pseudocyst in the body of the pancreas. 2. Widely metastatic prostatic bony disease. 3. Bilateral renal cysts and nonobstructing 3 mm calculus lower pole left kidney. Mo Romero MD Gall Bladder Ultrasound 02/18/18 0000 Signed Impressions: Service Date/Time: Sunday, February 18, 2018 18:39 - CONCLUSION: 1. No acute findings. Mild fatty liver. Small right renal cyst. No gallstones or biliary ductal dilatation. Mo Romero MD Physical Exam HEENT: PERRL; normocephalic; atraumatic; no jaundice. CHEST: CTA CARDIAC: RRR ABDOMEN: Soft, obese, mild RUQ TTP less than yesterday; no hepatosplenomegaly; bowel sounds are present in all four quadrants. EXTREMITIES: No clubbing, cyanosis, or edema. SKIN: Normal; no rash; no jaundice. ON SITE CONSTRUCTION SUPERINTENDENT: No focal deficits; alert and oriented times three. (Eun Wheeler) Assessment and Plan Plan Assessment: - Acute pancreatitis with CT findings of probably 1.9 cm pseudocyst in body of pancreas Lipase over 35,000 on arrival, currently 3,979 Reports two prior episodes of pancreatitis, last recurrence 5 years ago. Has never been told why he gets pancreatitis. Denies ETOH and history of gallstones. Complaining of epigastric pain radiating through to his back. Also complaining of nausea but that has been intermittent for a couple months CT abdomen and pelvis W IV contrast (02/18) --> Acute pancreatitis with fluid extending into the anterior pararenal space. Probable 1.9 cm pseudocyst in the body of the pancreas. Widely metastatic prostatic bony disease. Bilateral renal cysts and nonobstructing 3 mm calculus lower pole left kidney. US gallbladder (02/18) --> . No acute findings. Mild fatty liver. Small right renal cyst. No gallstones or biliary ductal dilatation. - Diarrhea- states explosive diarrhea, takes Imodium which helps but as soon as it wears of diarrhea begins again. Denies blood in stool, fever, chills, recent travel. ? secondary to radiation tx for prostate cancer. Last colonoscopy a year ago, states polyps Last EGD approx 5 years ago and states normal exam - Supratherapeutic INR- on Coumadin for a-fib. INR currently 5.7 - Reports medical marijuana use 02/20/18 doing better, lipase trending down, 792 today. tolerating ice chips CLARA, IGG4 pending. stool cx pending. triglycerides mildly elevated, not sufficiently to be likely cause for his pancreatitis 02/21/18 pain improving. lipase mild increase today. tolerating clear liquids. CLARA neg. Plan: EUS tomorrow NPO after midnight tues night clears await IgG4 IVF Pain control Monitor labs Pt has been seen and examined by myself and Dr. Cruz and this note is written on his behalf (Eun Wheeler) Physician Comments Patient seen and examined Agree with above Continue with current supportive care Monitor lab Endoscopic ultrasound tomorrow (Fox Cruz MD) Eun Wheeler Feb 21, 2018 11:15 Fox Cruz MD Feb 21, 2018 20:18
[2018-02-21] MEDS: FAMOTIDINE 20 MG/2 ML VIAL IV PUSH SCH ×3 (11:30→22:32)
[2018-02-21] MEDS: XTANDI 40 MG PO SCH (14:00)
[2018-02-21] MEDS: DEXTROSE 5%-LACTATED RING INJ 1,000 ML IV SCH (17:38)
[2018-02-21] MEDS: ATORVASTATIN 80 MG TAB PO SCH (19:47)
[2018-02-21] MEDS: TAMSULOSIN HCL 0.4 MG CAP PO SCH (19:47)
--- NOTE | 2018-02-21 19:56 | HHI.PR ---
Subjective Remarks As per RN report patient was very confused overnight being aggressive and had to be tied down. Today patient is baclk to baseline and states he does not remember those events. Patient is afebrile, ambulating in the hallways Objective Vitals Vital Signs Date Time Temp Pulse Resp B/P (MAP) Pulse Ox O2 Delivery O2 Flow Rate FiO2 02/21/18 16:00 98.3 69 19 145/70 (95) 99 02/21/18 13:00 70 02/21/18 11:30 97.9 56 20 150/80 (103) 99 02/21/18 07:30 98.3 68 20 148/78 (101) 100 02/21/18 07:00 50 02/21/18 04:00 57 02/21/18 03:30 98.0 58 20 112/65 (81) 98 02/20/18 23:20 97.3 89 22 138/79 (98) 95 02/20/18 23:00 89 02/20/18 20:00 98.1 56 18 153/83 (106) 98 02/20/18 20:00 56 I/O 02/20/18 02/20/18 02/20/18 02/21/18 02/21/18 02/21/18 07:00 15:00 23:00 07:00 15:00 23:00 Intake Total 50 ml 700 ml 240 ml 360 ml Output Total 550 ml 1030 ml 450 ml 350 ml Balance -500 ml -330 ml -210 ml -350 ml 360 ml Intake Oral 50 ml 700 ml 240 ml 360 ml Output Urine Total 550 ml 1030 ml 450 ml 350 ml # Voids 1 # Bowel Movements 0 0 Result Diagram: 02/21/18 0552 02/21/18 0552 Imaging Last Impressions Head CT 02/20/18 0000 Signed Impressions: Service Date/Time: Wednesday, February 21, 2018 00:23 - CONCLUSION: 1. No acute intracranial abnormalities. Mo Romero MD Chest X-Ray 02/18/181816 Signed Impressions: Service Date/Time: Sunday, February 18, 2018 18:35 - CONCLUSION: No acute cardiopulmonary process. Chemo Burris MD Abdomen/Pelvis CT 02/18/181816 Signed Impressions: Service Date/Time: Sunday, February 18, 2018 19:38 - CONCLUSION: 1. Acute pancreatitis with fluid extending into the anterior pararenal space. Probable 1.9 cm pseudocyst in the body of the pancreas. 2. Widely metastatic prostatic bony disease. 3. Bilateral renal cysts and nonobstructing 3 mm calculus lower pole left kidney. Mo Romero MD Gall Bladder Ultrasound 02/18/18 0000 Signed Impressions: Service Date/Time: Sunday, February 18, 2018 18:39 - CONCLUSION: 1. No acute findings. Mild fatty liver. Small right renal cyst. No gallstones or biliary ductal dilatation. Mo Romero MD Objective Remarks AAox3 Clear lungs BL S1S2 RRR, no MRG Epigastric tenderness, abdomen soft with positive bowel sounds Medications and IVs Current Medications Medications (Trade) Dose Ordered Sig/Gabi Route Start Time Stop Time Status Last Admin (D50w (Vial) Inj) 50 ml UNSCH PRN IV PUSH 02/18/18 22:00 02/19/18 12:14 (Glucagon Inj) 1 mg UNSCH PRN OTHER 02/18/18 22:00 (NovoLOG SUPPLEMENTAL SCALE) 1 ACHS SLIDING SCALE SQ 02/19/18 08:00 (NS Flush) 2 ml UNSCH PRN IV FLUSH 02/18/18 22:00 (NS Flush) 2 ml BID IV FLUSH 02/19/18 09:00 02/21/18 08:30 (Zofran Inj) 4 mg Q6H PRN IVP 02/18/18 22:00 (Tylenol) 650 mg Q6H PRN PO 02/18/18 22:00 (Roxicodone) 5 mg Q4H PRN PO 02/18/18 22:00 02/19/18 21:30 (Kristie-Colace) 1 tab BID PO 02/19/18 09:00 02/22/18 08:24 (Milk Of Magnesia Liq) 30 ml Q12H PRN PO 02/18/18 22:00 (Senokot) 17.2 mg Q12H PRN PO 02/18/18 22:00 (Dulcolax Supp) 10 mg DAILY PRN RECTAL 02/18/18 22:00 (Lactulose Liq) 30 ml DAILY PRN PO 02/18/18 22:00 (Lipitor) 80 mg HS PO 02/19/18 21:00 02/21/18 19:47 (Toprol Xl) 75 mg DAILY PO 02/19/18 09:00 02/22/18 08:25 (Paxil) 40 mg DAILY PO 02/19/18 09:00 02/22/18 08:24 (Flomax) 0.4 mg HS PO 02/19/18 21:00 02/21/18 19:47 (Pepcid Inj) 20 mg Q12H IV PUSH 02/18/18 23:00 02/21/18 22:32 (Dilaudid Pf Inj) 1 mg Q4H PRN IV 02/18/18 23:00 02/20/18 17:06 Patient Own Medication PT OWN MED: XTANDI (ENZALUTAMI... Q24H PO 02/19/18 14:00 02/21/18 14:00 Dextrose/Lactated Ringer's 1,000 ml @ 42 mls/hr [id number] IV 02/19/18 18:00 02/21/18 17:38 Lactated Ringer's 1,000 ml @ 30 mls/hr Q24H PRN IV 02/21/18 23:45 02/24/18 23:44 Sodium Chloride 500 ml @ 30 mls/hr [id number] PRN IV 02/21/18 23:45 02/24/18 23:44 (Betadine 5% Antisepsis Kit) 1 applic PERCUSSION INSTRUMENT TUNER PRN EACH NARE 02/21/18 23:45 02/24/18 23:44 (Chlorhexidine 2% Cloth) 3 pack PERCUSSION INSTRUMENT TUNER PRN TOPICAL 02/21/18 23:45 02/24/18 23:44 A/P Problem List: (1) Acute pancreatitis ICD Code: K85.90 - Acute pancreatitis without necrosis or infection, unspecified Status: Acute (2) Supratherapeutic INR ICD Code: R79.1 - Abnormal coagulation profile Status: Acute (3) Renal insufficiency ICD Code: N28.9 - Disorder of kidney and ureter, unspecified Status: Resolved (4) Prostate CA ICD Code: C61 - Malignant neoplasm of prostate Status: Chronic (5) Diarrhea ICD Code: R19.7 - Diarrhea, unspecified Status: Acute (6) Pseudocyst of pancreas ICD Code: K86.3 - Pseudocyst of pancreas Status: Acute (7) Encephalopathy acute ICD Code: G93.40 - Encephalopathy, unspecified Status: Resolved Assessment and Plan Acute pancreatitis Epigastric pain with radiation to his back Lipase levels at 35,000 on admission 1.9 cm pseudocyst in body of pancreas on CT Last occurrence was 5 years ago, only 2 occurrences in his life He denies any alcohol use His triglyceride level is only mildly elevated Consider medication side effect, specifically Xtandi (hold) Appreciate gastroenterology consult 02/21 for EUS in am. Discussed with GI PA. Lipase down to 792. Supratherapeutic INR INR 5.2 to 5.7 Vitamin K, 1mg SQ given Follow INR level daily Pancreatitis is a possible side effect of coumadin, reduce toxicity, follow lipase 02/20 INR continues to trend up however there is no evidence of active bleeding. 02/21 INR trending down, no evidence of bleeding. Diarrhea 28% of patients on Xtandi have diarrhea as a side effect Treat symptomatically 02/20 check stool studies and C diff PCR. However no BM in the last 3 days. Prostate cancer Metastatic, following up as outpatient with oncology Patient takes Xtandi as treatment Latest PSA was within normal limits DVT Prophylaxis Coumadin held for supertheraputic Discharge Planning EUS in am Problem Qualifiers (1) Diarrhea: Qualified Codes: R19.7 - Diarrhea, unspecified Troy Amos MD Feb 21, 2018 19:56
[2018-02-21] MEDS ORDERED: MELATONIN 5 MG TAB PO ONE (22:15)
[2018-02-21] MEDS ORDERED: CHLORHEXIDINE GLUCONATE 2 % 1 PACK (2 CLOTHS) TOPICAL PRN (23:45)
[2018-02-21] MEDS ORDERED: LACTATED RINGER'S 1000 ML IV PRN (23:45)
[2018-02-21] MEDS ORDERED: POVIDONE IODINE 5% (ANTISEPSIS KIT) 4 APPLICATIONS EACH NARE PRN (23:45)
[2018-02-21] MEDS ORDERED: SODIUM CHLORID 0.9% 500 ML IV PRN (23:45)
[2018-02-22] VITALS: BP 107/54; PULSE 66; RESP 18; TEMP 97.6; O2SAT 98
[2018-02-22 08:00] VITALS: BP 155/74; PULSE 74; RESP 17; TEMP 98.4; O2SAT 99
[2018-02-22] MEDS: INSULIN ASPART SUPPLEMENTAL SCALE SQ SCH ×4 (08:00→21:00)
[2018-02-22] MEDS: PARoxetine HCL 20 MG TAB PO SCH (08:24)
[2018-02-22] MEDS: DOCUSATE SODIUM 50 MG/SENNA 8.6 MG TAB PO SCH ×2 (08:24→21:00)
[2018-02-22] MEDS: METOPROLOL SUCCINATE 25 MG EXTENDED RELEASE TAB PO SCH (08:25)
[2018-02-22] MEDS: SODIUM CHLORIDE 0.9% FLUSH 10 ML FLUSH IV FLUSH SCH ×2 (08:27→21:00)
[2018-02-22] MEDS: FAMOTIDINE 20 MG/2 ML VIAL IV PUSH SCH ×2 (10:52→22:31)
[2018-02-22 12:00] VITALS: BP 150/67; PULSE 55; RESP 18; TEMP 98.1; O2SAT 96
[2018-02-22] MEDS ORDERED: PROPOFOL 200 MG/20 ML AMP IV ONE (12:00)
[2018-02-22] MEDS ORDERED: LIDOCAINE HCL 1% PF 5 ML SYRINGE OTHER ONE (12:00)
--- NOTE | 2018-02-22 13:29 | PD.PROCEDR ---
GI Procedure PROCEDURE PERFORMED EGD with biopsy followed by an endoscopic ultrasound INDICATION FOR PROCEDURE Acute pancreatitis, pseudocyst, known history of metastatic prostate cancer rule out pancreatic metastases PROCEDURE: The procedure, risks and benefits were discussed with Patient/POA and informed consent was obtained. Anesthesia sedated Patient with Diprivan. Patient was placed in the left lateral decubitus position. EGD: The Pentax videoscope was introduced through the oropharynx and advanced to the second portion of the duodenum under direct visualization. Retroflexion was performed in the stomach. FINDINGS: The esophagus this appeared to be unremarkable and within normal limits The stomach there was some mild patchy erythema in the antrum but no ulcerations no erosions no blood or bleeding antral biopsies were taken for further evaluation The duodenum there was significant nodularity with erythema in the duodenal bulb of unclear significance this was biopsied the rest of the duodenum was unremarkable EUS: The Pentax videoscope was introduced through the oropharynx and advanced to the second portion of the duodenum . FINDINGS: Pancreatic parenchyma appeared to be homogeneous isoechoic mild fluctuation with possible [id number] appearance with a normal pancreatic duct A small communicating pancreatic cyst was noted in the pancreatic body measuring about 1.5 cm The common bile duct also appear to be unremarkable No gallbladder was noted No lymphadenopathy seen No metastases noted to the pancreas ESTIMATED BLOOD LOSS: None SPECIMENS REMOVED: Gastric and duodenal biopsies COMPLICATIONS: None IMPRESSION: Mild gastritis Nodular duodenitis Small pancreatic cyst PLAN: Await biopsies Continue with current supportive care Monitor labs Repeat abdominal imaging most likely CT of the abdomen with pancreatic protocol in 6 months Follow-up with GI post discharge Fox Cruz MD Feb 22, 2018 13:29
[2018-02-22 14:00] VITALS: BP 138/78; PULSE 46; RESP 17; TEMP 97.7; O2SAT 98
[2018-02-22] MEDS: XTANDI 40 MG PO SCH ×2 (14:00→19:30)
[2018-02-22] MEDS ORDERED: MELATONIN 5 MG TAB PO PRN (14:45)
--- NOTE | 2018-02-22 14:47 | HHI.PR ---
Subjective Remarks Patient says he is feeling okay after procedure. Denies any chest pain or shortness of breath. Denies any nausea or vomiting. Feels like trying to eat. Objective Vital Signs Date Time Temp Pulse Resp B/P (MAP) Pulse Ox O2 Delivery O2 Flow Rate FiO2 02/22/18 13:21 97.2 56 18 132/77 (95) 98 02/22/18 12:00 98.1 55 18 150/67 (94) 96 02/22/18 08:00 98.4 74 17 155/74 (101) 99 02/22/18 00:00 97.6 66 18 107/54 (71) 98 02/21/18 20:00 97.9 76 18 116/62 (80) 97 02/21/18 16:00 98.3 69 19 145/70 (95) 99 I/O 02/21/18 02/21/18 02/21/18 02/22/18 02/22/18 02/22/18 07:00 15:00 23:00 07:00 15:00 23:00 Intake Total 240 ml 360 ml 483 ml 200 ml Output Total 450 ml 350 ml 700 ml Balance -210 ml -350 ml 360 ml -217 ml 200 ml Intake Oral 240 ml 360 ml 0 ml IV Total 483 ml Other 200 ml Output Urine Total 450 ml 350 ml 700 ml # Voids 1 1 # Bowel Movements 0 0 Result Diagram: 02/21/18 0552 02/21/18 0552 Objective Remarks GENERAL: Patient lying in bed. Appears comfortable. Alert and oriented 4. SKIN: Warm and dry. HEAD: Normocephalic. EYES: No scleral icterus. No injection or drainage. NECK: Supple, trachea midline. No JVD. CARDIOVASCULAR: Regular rate and rhythm without murmurs, gallops, or rubs. RESPIRATORY: Breath sounds equal bilaterally. No accessory muscle use. GASTROINTESTINAL: Abdomen soft, non-tender, nondistended. MUSCULOSKELETAL: No cyanosis, or edema. BACK: Nontender without obvious deformity. No CVA tenderness. A/P Assessment and Plan //Acute pancreatitis Epigastric pain with radiation to his back Lipase levels at 35,000 on admission 1.9 cm pseudocyst in body of pancreas on CT Last occurrence was 5 years ago, only 2 occurrences in his life He denies any alcohol use His triglyceride level is only mildly elevated Consider medication side effect, specifically Xtandi (hold) Appreciate gastroenterology consult 02/21 for EUS in am. Discussed with GI PA. Lipase down to 792. = 02/22. Appreciate gastroenterology assistance. EUS performed with small pancreatic cyst, mild gastritis. She requested to go home. If he eats without n/v, can discharge home. //Supratherapeutic INR INR 5.2 to 5.7 Vitamin K, 1mg SQ given Follow INR level daily Pancreatitis is a possible side effect of coumadin, reduce toxicity, follow lipase 02/20 INR continues to trend up however there is no evidence of active bleeding. 02/21 INR trending down, no evidence of bleeding. = No evidence of past stroke on CT. EKG with sinus bradycardia. May be safer to send him home off of warfarin and follow-up with primary care. Will follow. //Diarrhea 28% of patients on Xtandi have diarrhea as a side effect Treat symptomatically 02/20 check stool studies and C diff PCR. However no BM in the last 3 days. //Prostate cancer Metastatic, following up as outpatient with oncology Patient takes Xtandi as treatment Latest PSA was within normal limits //DVT Prophylaxis Coumadin held for supertheraputic Discharge Planning Patient tolerates diet, can discharge home. Due to high INR, will need to follow-up closely with primary care. Patient conveys understanding. Gavin Vale MD Feb 22, 2018 14:47
[2018-02-22 16:00] VITALS: BP 142/80; PULSE 66; RESP 18; TEMP 97.4; O2SAT 99
[2018-02-22] MEDS: DEXTROSE 5%-LACTATED RING INJ 1,000 ML IV SCH (18:51)
[2018-02-22 20:12] VITALS: BP 142/76; PULSE 61; RESP 18; TEMP 99.5; O2SAT 97
[2018-02-22] MEDS: TAMSULOSIN HCL 0.4 MG CAP PO SCH (21:00)
[2018-02-22] MEDS: ATORVASTATIN 80 MG TAB PO SCH (21:00)
[2018-02-23 04:47] LABS: INTERNATIONAL NORMALIZED RATIO 2.2 RATIO
[2018-02-23 04:47] LABS: AUTOMATED NEUTROPHIL # 3.2 TH/MM3 (1.8-7.7); BASOPHIL % 0.5 % (0.0-2.0); EOSINOPHIL # 0.2 TH/MM3 (0-0.4); EOSINOPHIL % 4.3 % (0.0-4.0); HEMATOCRIT 24.6 % (39.0-51.0); HEMOGLOBIN 8.8 GM/DL (13.0-17.0); LYMPH % 13.8 % (9.0-44.0); LYMPHOCYTE # 0.6 TH/MM3 (1.0-4.8); MEAN CELL VOLUME 93.2 FL (80.0-100.0); MEAN CORPUSCULAR HEMOGLOBIN 33.1 PG (27.0-34.0); MEAN CORPUSCULAR HGB CONC 35.5 % (32.0-36.0); MEAN PLATELET VOLUME 7.6 FL (7.0-11.0); MONO % 8.8 % (0.0-8.0); MONOCYTE # 0.4 TH/MM3 (0-0.9); NEUT % 72.6 % (16.0-70.0); PLATELET COUNT 182 TH/MM3 (150-450); RED BLOOD COUNT 2.64 MIL/MM3 (4.50-5.90); WHITE BLOOD COUNT 4.4 TH/MM3 (4.0-11.0)
[2018-02-23 05:07] LABS: ALBUMIN 2.7 GM/DL (3.4-5.0); ALT (GPT) 18 U/L (12-78); AST (GOT) 19 U/L (15-37); BICARBONATE 22.7 MEQ/L (21.0-32.0); BLOOD UREA NITROGEN 10 MG/DL (7-18); CALCIUM 7.9 MG/DL (8.5-10.1); CHLORIDE 113 MEQ/L (98-107); CREATININE 0.98 MG/DL (0.60-1.30); GLOMERULAR FILTRATION RATE 75 ML/MIN (>89); GLUCOSE,RANDOM 114 MG/DL (74-106); SODIUM (NA) 144 MEQ/L (136-145)
[2018-02-23 05:10] LABS: ALKALINE PHOSPHATASE 38 U/L (45-117); TOTAL BILIRUBIN ADULT 0.4 MG/DL (0.2-1.0); TOTAL PROTEIN 6.1 GM/DL (6.4-8.2)
[2018-02-23] MEDS: INSULIN ASPART SUPPLEMENTAL SCALE SQ SCH ×2 (07:49→11:55)
[2018-02-23 08:00] VITALS: BP 144/66; PULSE 52; RESP 17; TEMP 98; O2SAT 99
[2018-02-23] MEDS: METOPROLOL SUCCINATE 25 MG EXTENDED RELEASE TAB PO SCH (08:07)
[2018-02-23] MEDS: SODIUM CHLORIDE 0.9% FLUSH 10 ML FLUSH IV FLUSH SCH (08:08)
[2018-02-23] MEDS: DOCUSATE SODIUM 50 MG/SENNA 8.6 MG TAB PO SCH (08:08)
[2018-02-23] MEDS: PARoxetine HCL 20 MG TAB PO SCH (08:14)
--- NOTE | 2018-02-23 10:32 | HHI.GIFU ---
Subjective Remarks Sitting up in chair, morbid obesity Denies any current abdominal pain nausea or vomiting Afebrile Excited about discharge today (Janel Catalan) Objective Vitals I&O Vital Signs Date Time Temp Pulse Resp B/P (MAP) Pulse Ox O2 Delivery O2 Flow Rate FiO2 02/23/18 08:00 98.0 52 17 144/66 (92) 99 02/22/18 20:12 99.5 61 18 97 02/22/18 20:12 142/76 (98) 02/22/18 16:00 97.4 66 18 142/80 (100) 99 02/22/18 14:00 97.7 46 17 138/78 (98) 98 02/22/18 13:21 97.2 56 18 132/77 (95) 98 02/22/18 12:00 98.1 55 18 150/67 (94) 96 I/O 02/22/18 02/22/18 02/22/18 02/23/18 02/23/18 02/23/18 07:00 15:00 23:00 07:00 15:00 23:00 Intake Total 483 ml 200 ml 960 ml 480 ml Output Total 700 ml 900 ml Balance -217 ml 200 ml 60 ml 480 ml Intake Oral 0 ml 960 ml IV Total 483 ml 480 ml Other 200 ml Output Urine Total 700 ml 900 ml # Voids 1 # Bowel Movements 0 0 Laboratory Laboratory Tests Test 02/23/18 04:00 02/23/18 04:09 Prothrombin Time 22.0 Prothromb Time International Ratio 2.2 Blood Urea Nitrogen 10 Creatinine 0.98 Random Glucose 114 Total Protein 6.1 Albumin 2.7 Calcium Level 7.9 Alkaline Phosphatase 38 Aspartate Amino Transf (AST/SGOT) 19 Alanine Aminotransferase (ALT/SGPT) 18 Total Bilirubin 0.4 Sodium Level 144 Potassium Level 3.5 Chloride Level 113 Carbon Dioxide Level 22.7 Anion Gap 8 Estimat Glomerular Filtration Rate 75 Lipase 529 White Blood Count 4.4 Red Blood Count 2.64 Hemoglobin 8.8 Hematocrit 24.6 Mean Corpuscular Volume 93.2 Mean Corpuscular Hemoglobin 33.1 Mean Corpuscular Hemoglobin Concent 35.5 Red Cell Distribution Width 14.0 Platelet Count 182 Mean Platelet Volume 7.6 Neutrophils (%) (Auto) 72.6 Lymphocytes (%) (Auto) 13.8 Monocytes (%) (Auto) 8.8 Eosinophils (%) (Auto) 4.3 Basophils (%) (Auto) 0.5 Neutrophils # (Auto) 3.2 Lymphocytes # (Auto) 0.6 Monocytes # (Auto) 0.4 Eosinophils # (Auto) 0.2 Basophils # (Auto) 0.0 CBC Comment DIFF FINAL Differential Comment Imaging Last Impressions Head CT 02/20/18 0000 Signed Impressions: Service Date/Time: Wednesday, February 21, 2018 00:23 - CONCLUSION: 1. No acute intracranial abnormalities. Mo Romero MD Chest X-Ray 02/18/181816 Signed Impressions: Service Date/Time: Sunday, February 18, 2018 18:35 - CONCLUSION: No acute cardiopulmonary process. Chemo Burris MD Abdomen/Pelvis CT 02/18/181816 Signed Impressions: Service Date/Time: Sunday, February 18, 2018 19:38 - CONCLUSION: 1. Acute pancreatitis with fluid extending into the anterior pararenal space. Probable 1.9 cm pseudocyst in the body of the pancreas. 2. Widely metastatic prostatic bony disease. 3. Bilateral renal cysts and nonobstructing 3 mm calculus lower pole left kidney. Mo Romero MD Gall Bladder Ultrasound 02/18/18 0000 Signed Impressions: Service Date/Time: Sunday, February 18, 2018 18:39 - CONCLUSION: 1. No acute findings. Mild fatty liver. Small right renal cyst. No gallstones or biliary ductal dilatation. Mo Romero MD Physical Exam HEENT: PERRL; normocephalic; atraumatic; no jaundice morbid obese. CHEST: CTA CARDIAC: RRR ABDOMEN: Round, soft, obese, no obvious abdominal pain or soreness today; bowel sounds are present in all four quadrants. EXTREMITIES: No clubbing, cyanosis, or edema. SKIN: Normal; no rash; no jaundice. REFRIGERATION SPECIALIST: No focal deficits; alert and oriented times three. (Janel Catalan) Assessment and Plan Plan Assessment: - Acute pancreatitis with CT findings of probably 1.9 cm pseudocyst in body of pancreas Lipase over 35,000 on arrival, currently 3,979 Reports two prior episodes of pancreatitis, last recurrence 5 years ago. Has never been told why he gets pancreatitis. Denies ETOH and history of gallstones. Complaining of epigastric pain radiating through to his back. Also complaining of nausea but that has been intermittent for a couple months CT abdomen and pelvis W IV contrast (02/18) --> Acute pancreatitis with fluid extending into the anterior pararenal space. Probable 1.9 cm pseudocyst in the body of the pancreas. Widely metastatic prostatic bony disease. Bilateral renal cysts and nonobstructing 3 mm calculus lower pole left kidney. US gallbladder (02/18) --> . No acute findings. Mild fatty liver. Small right renal cyst. No gallstones or biliary ductal dilatation. - Diarrhea- states explosive diarrhea, takes Imodium which helps but as soon as it wears of diarrhea begins again. Denies blood in stool, fever, chills, recent travel. ? secondary to radiation tx for prostate cancer. Last colonoscopy a year ago, states polyps Last EGD approx 5 years ago and states normal exam - Supratherapeutic INR- on Coumadin for a-fib. INR currently 5.7 - Reports medical marijuana use 02/20/18 doing better, lipase trending down, 792 today. tolerating ice chips CLARA, IGG4 pending. stool cx pending. triglycerides mildly elevated, not sufficiently to be likely cause for his pancreatitis 02/21/18 pain improving. lipase mild increase today. tolerating clear liquids. CLARA neg. 02/22/18, EGD with EUS , Findings, Mild gastritis, Nodular duodenitis, Small pancreatic cyst Pancreatic parenchyma appeared to be homogeneous isoechoic mild fluctuation with possible [id number]-[id number] appearance with a normal pancreatic duct. A small communicating pancreatic cyst was noted in the pancreatic body measuring about 1.5 cm The common bile duct unremarkable. No gallbladder was noted, No lymphadenopathy seen No metastases noted to the pancreas 02/23/18, patient is sitting up in the chair excited to go home. Seems to be feeling better. Discussed high-fiber diet increased hydration and activity for patient's chronic constipation. Patient is to get bowel regimen before discharge. Supportive care Plan: Await biopsies Bowel regimen, high-fiber diet increase hydration and activity Continue with current supportive care Repeat abdominal imaging most likely CT of the abdomen with pancreatic protocol in 6 months Follow-up with GI post discharge Pt has been seen and examined by myself and Dr. Cruz and this note is written on his behalf (Janel Catalan) Physician Comments Patient seen and examined Agree with above Continue with current supportive care Monitor labs (Fox Cruz MD) Janel Catalan Feb 23, 2018 10:32 Fox Cruz MD Feb 23, 2018 21:34
[2018-02-23] MEDS ORDERED: LISI-519 PO (11:03)
[2018-02-23] MEDS ORDERED: METF1000 PO (11:03)
[2018-02-23] MEDS ORDERED: SOD PHOSPHATE/SOD BIPHOSPHATE (ADULT) ENEMA 133ML RECTAL ONE (11:15)
[2018-02-23] MEDS ORDERED: MAGNESIUM HYDROXIDE SUSP 30 ML CUP PO ONE (11:15)
[2018-02-23] MEDS ORDERED: DOCUSATE SODIUM 50 MG/SENNA 8.6 MG TAB PO ONE (11:15)
--- NOTE | 2018-02-23 11:19 | HHI.PR ---
Subjective Remarks Patient says he is feeling well. Denies any nausea vomiting. Denies abdominal pain today. Objective Vital Signs Date Time Temp Pulse Resp B/P (MAP) Pulse Ox O2 Delivery O2 Flow Rate FiO2 02/23/18 08:00 98.0 52 17 144/66 (92) 99 02/22/18 20:12 99.5 61 18 97 02/22/18 20:12 142/76 (98) 02/22/18 16:00 97.4 66 18 142/80 (100) 99 02/22/18 14:00 97.7 46 17 138/78 (98) 98 02/22/18 13:21 97.2 56 18 132/77 (95) 98 02/22/18 12:00 98.1 55 18 150/67 (94) 96 I/O 02/22/18 02/22/18 02/22/18 02/23/18 02/23/18 02/23/18 07:00 15:00 23:00 07:00 15:00 23:00 Intake Total 483 ml 200 ml 960 ml 480 ml Output Total 700 ml 900 ml Balance -217 ml 200 ml 60 ml 480 ml Intake Oral 0 ml 960 ml IV Total 483 ml 480 ml Other 200 ml Output Urine Total 700 ml 900 ml # Voids 1 # Bowel Movements 0 0 Result Diagram: 02/23/18 0409 02/23/18 0400 Objective Remarks GENERAL: Patient lying in bed. Appears comfortable. Alert and oriented 4. SKIN: Warm and dry. HEAD: Normocephalic. EYES: No scleral icterus. No injection or drainage. NECK: Supple, trachea midline. No JVD. CARDIOVASCULAR: Regular rate and rhythm without murmurs, gallops, or rubs. RESPIRATORY: Breath sounds equal bilaterally. No accessory muscle use. GASTROINTESTINAL: Abdomen soft, non-tender, nondistended. Positive bowel sounds MUSCULOSKELETAL: No cyanosis, or edema. BACK: Nontender without obvious deformity. No CVA tenderness. A/P Assessment and Plan //Acute pancreatitis Epigastric pain with radiation to his back Lipase levels at 35,000 on admission 1.9 cm pseudocyst in body of pancreas on CT Last occurrence was 5 years ago, only 2 occurrences in his life He denies any alcohol use His triglyceride level is only mildly elevated Consider medication side effect, specifically Xtandi (hold) Appreciate gastroenterology consult 02/21 for EUS in am. Discussed with GI PA. Lipase down to 792. = 02/22. Appreciate gastroenterology assistance. EUS performed with small pancreatic cyst, mild gastritis. pt requested to go home. If he eats without n /v, can discharge home. = 02/23. Discharge home. Discussed with gastroenterology. //Supratherapeutic INR //Afib INR 5.2 to 5.7 Vitamin K, 1mg SQ given Follow INR level daily Pancreatitis is a possible side effect of coumadin, reduce toxicity, follow lipase 02/20 INR continues to trend up however there is no evidence of active bleeding. 02/21 INR trending down, no evidence of bleeding. = No evidence of past stroke on CT. EKG with sinus bradycardia. May be safer to send him home off of warfarin and follow-up with primary care. Will follow. = INR 2.2. We will send home off warfarin. Can follow-up with primary care, oncology, cardiology as outpatient, probably start on Eliquis. Discussed small risk of stroke in the interim. Patient says that he has never been found to have atrial fibrillation aside from initial diagnosis. He states he would like to be off anticoagulation altogether. I recommended continuing anticoagulation upon follow-up with primary care. Patient conveys understanding. //Diarrhea 28% of patients on Xtandi have diarrhea as a side effect Treat symptomatically 02/20 check stool studies and C diff PCR. However no BM in the last 3 days. = 02/23. Laxatives ordered. Patient will use Fleet Enema at home. //Hypertension. Blood pressure acceptable. Decrease dose of lisinopril. //Prostate cancer Metastatic, following up as outpatient with oncology Patient takes Xtandi as treatment Latest PSA was within normal limits //DVT Prophylaxis Coumadin held for supertheraputic Discharge Planning Patient tolerates diet, can discharge home. Due to high INR, will need to follow-up closely with primary care. Patient conveys understanding. = We will discharge home off warfarin. Can start on anticoagulation upon follow -up with primary care, cardiology Gavin Vale MD Feb 23, 2018 11:19
--- NOTE | 2018-02-23 11:21 | HHI.DS ---
Discharge Summary Admission Date Feb 18, 2018 at 21:45 Discharge Date: Feb 23, 2018 Admitting Diagnosis Acute pancreatitis, pseudocyst (1) Acute pancreatitis ICD Code: K85.90 - Acute pancreatitis without necrosis or infection, unspecified Status: Acute (2) Supratherapeutic INR ICD Code: R79.1 - Abnormal coagulation profile Status: Acute (3) Renal insufficiency ICD Code: N28.9 - Disorder of kidney and ureter, unspecified Status: Resolved (4) Prostate CA ICD Code: C61 - Malignant neoplasm of prostate Status: Chronic (5) Diarrhea ICD Code: R19.7 - Diarrhea, unspecified Status: Acute (6) Pseudocyst of pancreas ICD Code: K86.3 - Pseudocyst of pancreas Status: Acute (7) Encephalopathy acute ICD Code: G93.40 - Encephalopathy, unspecified Status: Resolved Procedures Endoscopic ultrasound Brief History - From Admission This is a 72-year-old male with a PMH of Metastatic Prostate CA, A-fib on Coumadin, HTN, CAD and DM who presented to ER with complaints of abdominal pain starting earlier today. States he's had ongoing diarrhea for approx 2mo, follows w/ GI doc in [place], however has not seen him since symptoms started. Today, had episode of severe RUQ/epigastric pain, sharp, 10/10, radiation to back, worse w/ movement. Symptoms persisted after several hours at which time he decided to come to the ER. No fever, chills, nausea or vomiting. On arrival , BP 119/55, HR 67, O2 sat 97% on RA, Afebrile. CBC essentially unremarkable. Creatinine 1.41, no previous labs for comparison. Troponin negative. Lipase 35 ,213. INR 5.3. CT Abdomen/Pelvis with acute pancreatitis with fluid extending to anterior pararenal space, probable 1.9 cm pseudocyst in body of the pancreas , widely metastatic prostatic bony disease. CXR with no acute findings. Gallbladder US no acute findings, mild fatty liver, no gallstones or biliary ductal dilatation. Pt reports h/o Pancreatitis approx 5-6 yrs ago, states Lipase was around 2000 at that time, no recurrence since then. CBC/BMP: 02/23/18 0409 02/23/18 0400 Significant Findings Laboratory Tests Test 02/20/18 20:44 02/21/18 05:52 02/23/18 04:00 02/23/18 04:09 Estimat Glomerular Filtration Rate 67 ML/MIN (>89) 69 ML/MIN (>89) 75 ML/MIN (>89) Red Blood Count 2.99 MIL/MM3 (4.50-5.90) 2.64 MIL/MM3 (4.50-5.90) Hemoglobin 9.7 GM/DL (13.0-17.0) 8.8 GM/DL (13.0-17.0) Hematocrit 28.1 % (39.0-51.0) 24.6 % (39.0-51.0) Neutrophils (%) (Auto) 79.1 % (16.0-70.0) 72.6 % (16.0-70.0) Lymphocytes # (Auto) 0.6 TH/MM3 (1.0-4.8) 0.6 TH/MM3 (1.0-4.8) Prothrombin Time 48.1 SEC (9.8-11.6) 22.0 SEC (9.8-11.6) Random Glucose 119 MG/DL (74-106) 114 MG/DL (74-106) Albumin 3.0 GM/DL (3.4-5.0) 2.7 GM/DL (3.4-5.0) Calcium Level 8.4 MG/DL (8.5-10.1) 7.9 MG/DL (8.5-10.1) Alkaline Phosphatase 41 U/L (45-117) 38 U/L (45-117) Chloride Level 110 MEQ/L (98-107) 113 MEQ/L (98-107) Troponin I LESS THAN 0.02 NG/ML Lipase 1172 U/L (73-393) 529 U/L (73-393) Total Protein 6.1 GM/DL (6.4-8.2) Monocytes (%) (Auto) 8.8 % (0.0-8.0) Eosinophils (%) (Auto) 4.3 % (0.0-4.0) Imaging Last Impressions Head CT 02/20/18 0000 Signed Impressions: Service Date/Time: Wednesday, February 21, 2018 00:23 - CONCLUSION: 1. No acute intracranial abnormalities. Mo Romero MD Chest X-Ray [id number]/18/[id number] Signed Impressions: Service Date/Time: Sunday, February 18, 2018 18:35 - CONCLUSION: No acute cardiopulmonary process. Chemo Burris MD Abdomen/Pelvis CT [id number]/18/[id number] Signed Impressions: Service Date/Time: Sunday, February 18, 2018 19:38 - CONCLUSION: 1. Acute pancreatitis with fluid extending into the anterior pararenal space. Probable 1.9 cm pseudocyst in the body of the pancreas. 2. Widely metastatic prostatic bony disease. 3. Bilateral renal cysts and nonobstructing 3 mm calculus lower pole left kidney. Mo Romero MD Gall Bladder Ultrasound 02/18/18 0000 Signed Impressions: Service Date/Time: Sunday, February 18, 2018 18:39 - CONCLUSION: 1. No acute findings. Mild fatty liver. Small right renal cyst. No gallstones or biliary ductal dilatation. Mo Romero MD PE at Discharge AAox3 Clear lungs BL S1S2 RRR, no MRG Epigastric tenderness, abdomen soft with positive bowel sounds Hospital Course //Acute pancreatitis Epigastric pain with radiation to his back Lipase levels at 35,000 on admission 1.9 cm pseudocyst in body of pancreas on CT Last occurrence was 5 years ago, only 2 occurrences in his life He denies any alcohol use His triglyceride level is only mildly elevated Consider medication side effect, specifically Xtandi (hold) Appreciate gastroenterology consult 02/21 for EUS in am. Discussed with GI PA. Lipase down to 792. = 02/22. Appreciate gastroenterology assistance. EUS performed with small pancreatic cyst, mild gastritis. pt requested to go home. If he eats without n /v, can discharge home. = 02/23. Discharge home. Discussed with gastroenterology. //Supratherapeutic INR //Afib INR 5.2 to 5.7 Vitamin K, 1mg SQ given Follow INR level daily Pancreatitis is a possible side effect of coumadin, reduce toxicity, follow lipase 02/20 INR continues to trend up however there is no evidence of active bleeding. 02/21 INR trending down, no evidence of bleeding. = No evidence of past stroke on CT. EKG with sinus bradycardia. May be safer to send him home off of warfarin and follow-up with primary care. Will follow. = INR 2.2. We will send home off warfarin. Can follow-up with primary care, oncology, cardiology as outpatient, probably start on Eliquis. Discussed small risk of stroke in the interim. Patient says that he has never been found to have atrial fibrillation aside from initial diagnosis. He states he would like to be off anticoagulation altogether. I recommended continuing anticoagulation upon follow-up with primary care. Patient conveys understanding. //Diarrhea 28% of patients on Xtandi have diarrhea as a side effect Treat symptomatically 02/20 check stool studies and C diff PCR. However no BM in the last 3 days. = 02/23. Laxatives ordered. Patient will use Fleet Enema at home. //Hypertension. Blood pressure acceptable. Decrease dose of lisinopril. //Prostate cancer Metastatic, following up as outpatient with oncology Patient takes Xtandi as treatment Latest PSA was within normal limits //DVT Prophylaxis Coumadin held for supertheraputic Discharge Planning Patient tolerates diet, can discharge home. Due to high INR, will need to follow-up closely with primary care. Patient conveys understanding. = We will discharge home off warfarin. Can start on anticoagulation upon follow -up with primary care, cardiology Pt Condition on Discharge: Good Discharge Disposition: Discharge Home Discharge Time: > 30 minutes Discharge Instructions DIET: Follow Instructions for: Diabetic Diet, Low Fat Diet Activities you can perform: Regular-No Restrictions Follow up Referrals: Cardiology - 1 Week Gastroenterology - 1 Week with Fox Cruz MD Oncology - 1 Week PCP Follow-up - 1 Week New Medications: Lisinopril (Lisinopril) 5 Mg Tab 5 MG PO DAILY for Blood Pressure Management, #30 TAB 0 Refills Changed Medications: Metformin (Metformin) 1,000 Mg Tab 500 MG PO BIDPC for Blood Sugar Management for 30 Days, #60 TAB 0 Refills ( Changed from: 1000 MG) Continued Medications: Atorvastatin (Atorvastatin) 80 Mg Tab 80 MG PO HS for Cholesterol Management, #30 TAB 0 Refills Calcium Carbonate-Cholecalciferol (Calcium 600 with Vitamin D) 600-400 mg-Unit Tab 1 TAB PO DAILY for Calcium Supplement, TAB 0 Refills Denosumab Inj (Xgeva Inj) 120 Mg/1.7 Ml (70 Mg/Ml) Inj 120 MG SQ Q28D, VIAL 0 Refills Enzalutamide (Xtandi) 40 Mg Cap 160 MG PO DAILY for Chemotherapy Management, #120 CAP 0 Refills Leuprolide (Monthly) Inj Kit (Eligard Inj Kit) 7.5 Mg Kit Unknown Dose SQ Q30D, #1 KIT 0 Refills Melatonin (Melatonin) 5 Mg Tab 5 MG PO HS for Provide Good Sleep, TAB 0 Refills Metoprolol Succinate ER 24 HR (Metoprolol Succinate ER 24 HR) 25 Mg Tab 75 MG PO DAILY, #30 TAB 0 Refills Celestine 3 Fatty Jagpl-Atrpbo-Rmyzowceuf (Enohm Eye Fusebill) 250-2.5-0.5 Mg Cap 1 CAP PO DAILY for Nutritional Supplement, CAP 0 Refills Paroxetine (Paroxetine) 40 Mg Tab 40 MG PO DAILY, #30 TAB 0 Refills Herreid-223 Dichloride (Xofigo) 1,100 Kbq/Ml (30 Microcurie/Ml) Vial Tamsulosin (Tamsulosin) 0.4 Mg Cap 0.4 MG PO HS for Manage Prostate Problems, #30 CAP 0 Refills Discontinued Medications: Lisinopril (Lisinopril) 20 Mg Tab 20 MG PO DAILY, #30 TAB 0 Refills Warfarin (Warfarin) 2.5 Mg Tab 2.5 MG PO DAILY for Blood Clot Prevention, #30 TAB 0 Refills Gavin Vale MD Feb 23, 2018 11:20
[2018-02-23] MEDS: FAMOTIDINE 20 MG/2 ML VIAL IV PUSH SCH (11:32)
[2018-02-23 12:00] VITALS: BP 122/61; PULSE 58; RESP 18; TEMP 97.3; O2SAT 99
== END 2018-02-23 13:08 | disposition home or self-care (01) | DRG 438 ==
LOC: NEPC 17:46 → NEDA 21:45 → HCIS 23:55 → N07B 02-21 14:17
PROVIDERS: ADMIT Internal Medicine; ATTEND Internal Medicine
PROC: 0DB78ZX Excision of Stomach, Pylorus, Via Natural or Artificial Opening Endoscopic, Diagnostic (ICD-10-PCS; 2018-02-22)
PROC: 0DB98ZX Excision of Duodenum, Via Natural or Artificial Opening Endoscopic, Diagnostic (ICD-10-PCS; principal; 2018-02-22 12:30)
DX: K85.90 Acute pancreatitis without necrosis or infection, unspecified (principal); G93.40 Encephalopathy, unspecified; I48.91 Unspecified atrial fibrillation; C79.51 Secondary malignant neoplasm of bone; C61 Malignant neoplasm of prostate; N28.1 Cyst of kidney, acquired; E66.01 Morbid (severe) obesity due to excess calories; K76.0 Fatty (change of) liver, not elsewhere classified; K86.3 Pseudocyst of pancreas; K86.2 Cyst of pancreas; E86.0 Dehydration; I10 Essential (primary) hypertension; K59.09 Other constipation; K29.80 Duodenitis without bleeding; E11.9 Type 2 diabetes mellitus without complications; R19.7 Diarrhea, unspecified; F12.90 Cannabis use, unspecified, uncomplicated; I25.10 Atherosclerotic heart disease of native coronary artery without angina pectoris; F41.9 Anxiety disorder, unspecified; K29.70 Gastritis, unspecified, without bleeding; K52.9 Noninfective gastroenteritis and colitis, unspecified; T45.515A Adverse effect of anticoagulants, initial encounter; R79.1 Abnormal coagulation profile; Z79.01 Long term (current) use of anticoagulants; Z79.84 Long term (current) use of oral hypoglycemic drugs; Z68.32 Body mass index [BMI] 32.0-32.9, adult; Z87.442 Personal history of urinary calculi; Z95.5 Presence of coronary angioplasty implant and graft
CPT/HCPCS: 43259; 70450; 71045; 74177; 76705; 76937; 80048; 80053; 80061; 81001; 82550; 82552; 82565; 82784; 82787; 82948; 83690; 83735; 84100; 84484; 85025; 85027; 85610; 85730; 86038; 88305; 88312; 93005; 96361; 96374; 96375; J1170; J2060; J2270; J2405; J3430; J7030; J7121; Q9967